=== PATIENT | female | born 1935 | race Caucasian/White ===

== ENCOUNTER 2016-12-04 08:03 | Inpatient (IN) | payer MEDICARE ==
--- NOTE | 2016-11-26 04:05 | HP ---
PREOPERATIVE HISTORY AND PHYSICAL: DATE OF ADMISSION/SURGERY: 12/04/16 DATE OF OFFICE VISIT: 11/23/16 ATTENDING SURGEON: Dr. Ellen Pearl * (DICTATED BY ADAMARIS PIZARRO) PROCEDURE: Right total knee replacement. CHIEF COMPLAINT: Right knee pain. HISTORY OF PRESENT ILLNESS: Ms. Urena is a 81-year-old female who presents to the clinic for right knee pain due to severe osteoarthritis. She has failed conservative measures and has therefore agreed to undergo a right total knee replacement with Dr. Pearl on 12/04/16. PAST MEDICAL HISTORY: Hypertension, osteoarthritis, dyslipidemia, diabetes type 2, chronic kidney disease, peripheral vascular disease, aortic stenosis. PAST SURGICAL HISTORY: Hysterectomy, bunion surgery of the right foot. Denies prior complications with anesthesia. MEDICATIONS: 1. Benazepril HCL/hydrochlorothiazide 20-25 two tabs daily in the morning. 2. Amlodipine besylate 5 mg 1 by mouth every day. 3. Metoprolol succinate 50 mg 1 by mouth every day in the morning. 4. Aspirin low dose 81 mg 1 tab by mouth daily. 5. Os-Ervin 500/200 D 3 tabs by mouth every day. 7. Multivitamin 1 by mouth every day. 8. Ferrous sulfate 325 one by mouth every day. 9. Colace 100 mg 1 a day as needed. 10. Glucosamine chondroitin 500 mg 2 caps p.o. twice a day. 11. Cyclobenzaprine HCL 10 mg take 1 by mouth at bedtime. 12. Probiotic once daily. 13. Vitamin B6. ALLERGIES: PENICILLIN, TYLENOL WITH CODEINE, CLARINEX, SULFA ANTIBIOTIC, CIPRO and ZITHROMAX. FAMILY HISTORY: Positive for diabetes in her mother, heart disease and stroke. SOCIAL HISTORY: She lives alone. She denies tobacco, alcohol or illegal drug use. She is right hand dominant. REVIEW OF SYSTEMS: General: Negative for fevers, chills, night sweats or any anesthesia problems. HEENT: Negative for headache, lightheadedness, or syncopal episodes. Integumentary: Negative for abrasions, lesions, or open wounds. Cardiothoracic: Negative for chest pain, palpitations, or edema. Positive for hypertension. Pulmonary: Positive for shortness of breath with exertion. Denies COPD. GI: Negative for nausea, vomiting, diarrhea, constipation. Denies GERD. : Negative for nocturia, urinary frequency, history of UTIs, or kidney problems. Musculoskeletal: Positive for right knee pain. Neuro: Denies numbness, tingling, history of seizure, stroke, epilepsy. Endocrine: Positive for diabetes, no thyroid issues. Heme: Positive for easy bruising. Denies history of bleeding disorder. Denies history of DVT or PE. Infectious disease: Negative for history of MRSA, hep C or HIV. PHYSICAL EXAMINATION GENERAL: Well-developed, well-nourished, 81-year-old female in no acute distress. Alert and oriented x3, appropriate mood and affect. Appropriate balance and coordination. VITAL SIGNS: Height 63, weight 178, pulse 68, blood pressure 126/68, temperature 97.5. BMI is 31.5. HEENT: Normocephalic, atraumatic. PERRLA. NECK: Supple. Throat clear. PULMONARY: Lungs clear to auscultation bilaterally. No wheezing, rhonchi, or rales. CARDIO: Regular rate and rhythm, S1 and S2. No murmurs, gallops or rubs. No edema. ABDOMEN: Positive bowel sounds, soft, nontender. NEURO: Alert and oriented x3. Cranial nerves grossly intact. Sensation is intact to light touch. MUSCULOSKELETAL: Right lower extremity: Skin is intact. No abrasions or open lesions. 10-degree varus deformity, tenderness to palpation on the medial and lateral joint line. Moderate effusion. Stable to varus and valgus stress. No focal masses or lymph nodes. No hyperreflexia. Range of motion from 10 to 120 degrees, +5/5 lower extremity strength, +2 posterior tibialis pulses. Sensation intact to light distally. DIAGNOSTIC STUDIES: Multi-view x-rays of the right knee reveal evidence of end - stage arthritis with [id number] contact in the medial compartment with osteophyte formation. IMPRESSION: Right knee severe osteoarthritis. PLAN: The patient is scheduled to undergo a right total knee replacement with Dr. Pearl on 12/04/16. She has been cleared by her limnologist and her primary care physician. The patient was instructed to stop aspirin 1 week prior to surgery. She will return to the office in 10 to 14 days postop for followup and suture removal. Percocet was e-prescribed to her pharmacy for postop pain management. Coumadin for sent for DVT prophylaxis and Colace was sent to be used as needed for constipation. ADAMARIS PIZARRO [id number]/[facility] #: [id number] [facility] MEDICAL CENTERMurtaza
[~2016-12-04 08:03] MED LIST: Buffered Lidocaine 0.9% SYRIN* 5 ML/SYR SYRINGE INTRADERM ONE; Famotidine IV* 10 MG/ML 2 ML (20 mg) IV ONE; Gabapentin CAP(*) 300 MG PO ONE
[2016-12-04] MEDS ORDERED: Famotidine IV* 10 MG/ML 2 ML (20 mg) ONE (08:10)
[2016-12-04] MEDS ORDERED: Gabapentin CAP(*) 300 MG ONE (08:11)
[2016-12-04] MEDS ORDERED: Buffered Lidocaine 0.9% SYRIN* 5 ML/SYR SYRINGE ONE (08:11)
[2016-12-04] MEDS ORDERED: Clindamycin 900 MG IVPREMIX(* 900 MG/50 ML SDV IV ONE (08:11)
[2016-12-04] MEDS ORDERED: Midazolam* 1 MG/ML 5 ML VIAL (5 MG) ONE (08:34)
[2016-12-04] MEDS ORDERED: fentaNYL* 50 MCG/ML 2 ML VIAL (100 MCG VIAL) ONE (08:34)
[2016-12-04] MEDS ORDERED: Lidocaine 2% PF * 5 ML VIAL ONE (10:55)
[2016-12-04] MEDS ORDERED: Succinylcholine* 20 MG/ML 10 ML VIAL ONE (10:55)
[2016-12-04] MEDS ORDERED: Dexamethasone IV* 4 MG/ML 1 ML (4 MG) ONE (10:55)
[2016-12-04] MEDS ORDERED: Ketorolac INJ* 30 MG/ML 1 ML VIAL ONE (10:55)
[2016-12-04] MEDS ORDERED: Propofol* 10 MG/ML 20 ML BTL IV PUSH ONE (10:55)
[2016-12-04] MEDS ORDERED: DiMENhydriNATE IV* 50 MG/ML VIAL ONE (10:55)
[2016-12-04] MEDS ORDERED: Ondansetron INJ* 2 MG/ML VIAL ONE (10:55)
[2016-12-04] MEDS ORDERED: ROPIVACAINE 5 MG/ML 30 ML BTL (0.5%) ONE (10:59)
[2016-12-04] MEDS ORDERED: oxyCODONE TAB* 5 MG TAB PO PRN ×2 (11:17→13:14)
[2016-12-04] MEDS ORDERED: Acetaminophen IV 1GM/100ML * 100 ML IVPB ONE (11:17)
[2016-12-04] MEDS ORDERED: DiMENhydriNATE IV* 50 MG/ML VIAL IV PUSH PRN (11:17)
[2016-12-04] MEDS ORDERED: HYDROmorphone* 1 MG/ML 1 ML SYR IV PRN (11:17)
[2016-12-04] MEDS ORDERED: Gabapentin CAP(*) 100 MG PO ONE (11:18)
[2016-12-04] MEDS ORDERED: KETAMINE HCL* 50 MG/ML 10 ML VIAL ONE (11:39)
[2016-12-04] MEDS ORDERED: diPHENhydraMINE IV* 50 MG/ML 1 ml VIAL (BENADRYL) IV PRN (13:14)
[2016-12-04] MEDS ORDERED: diPHENhydraMINE PO* 25 MG PO PRN (13:14)
[2016-12-04] MEDS ORDERED: Ondansetron TAB* 4 MG PO PRN (13:14)
[2016-12-04] MEDS ORDERED: Acetaminophen TAB* 325 MG PO PRN (13:14)
[2016-12-04] MEDS ORDERED: Bisacodyl SUPP* 10 MG SUPP PR PRN (13:19)
[2016-12-04] MEDS ORDERED: Polyethylene Glycol 3350* 17 GM PACKET PO PRN (13:19)
[2016-12-04] MEDS ORDERED: HYDROmorphone* 1 MG/ML 1 ML SYR ONE ×2 (13:27→15:12)
[2016-12-04] MEDS ORDERED: Acetaminophen IV 1GM/100ML * 100 ML ONE (13:59)
[2016-12-04] MEDS ORDERED: Gabapentin CAP(*) 100 MG ONE (13:59)
[2016-12-04] MEDS ORDERED: ceFAZolin VIAL(*) 1 GM in NS 0.9% 50 ML* 50 ML IVPB SCH (14:00)
--- NOTE | 2016-12-04 15:54 | RAD ---
INDICATION: Status post right knee total joint replacement surgery. COMPARISON: Comparison is made x-ray study of the knees from September 11, 2016. TECHNIQUE: 2 views of the right knee were obtained. FINDINGS: The patient is status post total right knee replacement surgery. The bones and prostheses are in normal alignment. There is a single surgical drain present anterior to the distal femur. IMPRESSION: STATUS POST TOTAL RIGHT KNEE REPLACEMENT SURGERY.
[2016-12-04] MEDS ORDERED: Warfarin TAB(*) 6 MG PO ONE (17:00)
[2016-12-04] MEDS: oxyCODONE/Acetamin 5/325 MG* TAB PO PRN ×2 (18:24→22:49)
[2016-12-04] MEDS: Clindamycin 600 MG IVPREMIX(* 600 MG/50 ML SDV IV SCH (19:35)
[2016-12-04] MEDS: Magnesium Hydroxide LIQ* 30 ML UDC PO SCH (20:42)
[2016-12-04] MEDS: Docusate CAP* 100 MG PO SCH (20:45)
[2016-12-04] MEDS: Cyclobenzaprine TAB* 10 MG PO SCH (20:45)
--- NOTE | 2016-12-04 21:48 | CONS ---
CC: Dr. Kilpatrick * CONSULTATION REPORT: DATE OF CONSULT: 12/04/16 REQUESTING PROVIDER: Dr. Ellen Pearl. CONSULTING PROVIDER: ADAMARIS Greenberg SUPERVISING PHYSICIAN: Dr. Nael Martin. PRIMARY CARE PROVIDER: Dr. Kilpatrick. PRIMARY CONSULTING SOLUTION MANAGER: Dr. Malone. REASON FOR CONSULT: Status post right total knee replacement with request for hospital consult for medical co-management. HISTORY OF PRESENT ILLNESS: This is a 81-year-old female with chronic kidney disease, hypertension, hyperlipidemia, peripheral vascular disease, who presented for an elective right total knee arthroplasty with Dr. Pearl earlier today. The patient was evaluated by both her primary care provider as well as her machine tank operator, Dr. Malone, preoperatively. There was a mention of diabetes in her medical history from her orthopedic H and P, but this does not appear to be reflected in her PCP or Cardiology notes. The patient last underwent stress testing approximately 2 years ago, November 2014, which was within normal limits, and her last echo was around the same time, was also essentially normal with an EF of 55% to 60% with trace aortic stenosis and mild mitral regurg. Dr. Malone did not recommend any repeat cardiac imaging preoperatively. The patient was able to provide just a limited history in the recovery area, she was so quite sedated from general anesthesia. She denied chest pain, shortness of breath, abdominal pain, nausea, or vomiting. She was complaining of severe right knee pain. PAST MEDICAL HISTORY: 1. Hypertension. 2. Hyperlipidemia. 3. Peripheral vascular disease. 4. Stage 3 chronic kidney disease. PAST SURGICAL HISTORY: 1. Hysterectomy. 2. Bunionectomy of the right foot. HOME MEDICATIONS: 1. B6 100 mg p.o. at bedtime. 2. Os-Ervin 1 tablet p.o. daily. 3. Acetaminophen 325 mg p.o. q.6 hours as needed for pain or fever. 4. Amlodipine 5 mg p.o. daily. 5. Aspirin 81 mg p.o. daily. 6. Benazepril and hydrochlorothiazide 20/25 two tablets p.o. daily. 7. Flexeril 10 mg p.o. at bedtime. 8. Colace 100 mg p.o. daily. 9. Ferrous sulfate 325 mg p.o. daily. 10. Glucosamine 1 capsule p.o. daily. 11. Metoprolol succinate 50 mg p.o. daily. 12. Multivitamin 1 capsule p.o. daily. SOCIAL HISTORY: The patient lives alone. No significant smoking history, no regular alcohol consumption. REVIEW OF SYSTEMS: Unable to obtain as the patient is still quite sedated postoperatively. PHYSICAL EXAM: Recent vitals: Temperature 99.9 degrees Fahrenheit, pulse 67 beats per minute, respiratory rate 18 per minute, oxygen saturation 94% on 4 L, blood pressure 115/61 mmHg. General: This is a 81-year-old female who is still quite lethargic postoperatively, evaluated in PACU. She is occasionally able to respond to her name and is able to report that she is in pain and the other negative review of systems as listed above. HEENT: Head is normocephalic , atraumatic. Mucous membranes are pink and moist. Cardiovascular: Heart has a regular rate and rhythm without murmurs, rubs, or gallops. Respiratory: Lungs are clear to auscultation without wheezes, crackles, or rhonchi. Abdomen: Abdomen is soft and nontender to palpation. Extremities: Right knee is in a postoperative dressing. Distal pulses are intact. DIAGNOSTIC STUDIES/LAB DATA: Reviewed labs from 11/23/16 and 11/05/16. CBC was within normal limits with a white blood cell count of 7900, hemoglobin of 12.1 g/dL, and platelet count 213,000. TSH of 1.91 with a free T4 of 0.82. Basic metabolic panel showed a sodium of 132, potassium 4.1, BUN 40, creatinine 1.26. Imaging: Preoperative EKG shows a normal sinus rhythm. ASSESSMENT AND PLAN: This is a 81-year-old female with hypertension, hyperlipidemia, stage 3 chronic kidney disease, and peripheral vascular disease , who underwent elective right total knee arthroplasty with Dr. Pearl earlier today. Hospitalist group has been asked to consult for medical co-management. 1. Status post right total knee arthroplasty - postoperative management per Orthopedic Surgery including DVT prophylaxis, pain control, and discharge planning. 2. Stage 3 chronic kidney disease - preop creatinine of 1.26. Recommend avoiding nephrotoxic agents and a repeat basic metabolic panel tomorrow morning. 3. Hypertension - we will hold her benazepril and hydrochlorothiazide for tomorrow morning assuming her chemistries are stable and blood pressure tolerates, can likely be resumed either later in the day tomorrow or the following day. 4. Hyperlipidemia. 5. Peripheral vascular disease. 6. Code status - the patient is a full code. 7. DVT prophylaxis - Lovenox bridged to Coumadin per Orthopedic Surgery. 8. Healthcare proxy is unknown at this time. DISPOSITION: The patient is being admitted inpatient status to orthopedic surgery service. Hospitalist group will continue to follow along during her hospital stay. ADAMARIS GREENBERG [id number]/[facility] #: [id number] PATT
[2016-12-05] MEDS: oxyCODONE/Acetamin 5/325 MG* TAB PO PRN ×5 (04:14→22:24)
[2016-12-05] MEDS: Clindamycin 600 MG IVPREMIX(* 600 MG/50 ML SDV IV SCH ×2 (04:15→12:00)
[2016-12-05 05:59] LABS: Hematocrit 25 % (35-47); Hemoglobin 8.7 g/dl (12.0-16.0)
[2016-12-05 06:16] LABS: BUN/Creatinine Ratio 26.7 (8-20); Calcium 7.9 mg/dL (8.6-10.3); EGFR Non-African American 45.1 (>60); Potassium 4.8 mmol/L (3.5-5.0)
[2016-12-05] MEDS: Ferrous Sulfate TAB* 325 MG PO SCH (08:11)
[2016-12-05] MEDS: Multivitamins/Minerals TAB PO SCH (08:11)
[2016-12-05] MEDS: Magnesium Hydroxide LIQ* 30 ML UDC PO SCH ×2 (08:11→21:16)
[2016-12-05] MEDS: Metoprolol Succinate XL TAB* 50 MG PO SCH (08:11)
[2016-12-05] MEDS: Docusate CAP* 100 MG PO SCH ×2 (08:11→21:16)
[2016-12-05] MEDS: NS 0.9% 1000 ML* 1,000 ML IV SCH ×2 (08:15→19:25)
[2016-12-05] MEDS ORDERED: [UNRECOGNIZED DRUG - OTHER] PO SCH (09:00)
--- NOTE | 2016-12-05 10:28 | PN ---
Progress Note - Progress Note Date of Service: 12/05/16 SOAP: Subjective: []Patient seen OOB in chair, doing well. Pain well managed. Denies SOB, CP or dizziness. Objective: [] Vital Signs Temp 97.3 F 12/05/16 08:05 Pulse 65 12/05/16 08:05 Resp 16 12/05/16 08:12 BP 99/47 12/05/16 08:05 Pulse Ox 99 12/05/16 09:15 Intake & Output 12/04/16 12/05/16 12/05/16 18:59 06:59 18:59 Intake Total 2575 480 Output Total 425 900 Balance -425 1675 480 Weight 177 lb Intake: IV Fluids 980 LR 980 IVPB 55 ABX - CLINDAMYCIN 55 Oral 1540 480 Output: [place] 225 900 Estimated Blood Loss 200 Other: # Bowel Movements 0 Laboratory Results - last 24 hr 12/05/16 12/05/16 12/05/16 05:25 05:25 05:25 Hgb 8.7 L Hct 25 L INR (Anticoag Therapy) 1.05 Sodium 124 L Potassium 4.8 Chloride 92 L Carbon Dioxide 23 Anion Gap 9 BUN 31 H Creatinine 1.16 H Est GFR ( Amer) 58.0 Est GFR (Non-Af Amer) 45.1 BUN/Creatinine Ratio 26.7 H Glucose 164 H Calcium 7.9 L Right knee dressings are dry and intact Hemovac drain pulled without difficulty, tip intact calf NT and soft + DF/PF right ankle sensation intact distally Assessment: []s/p Right total knee arthroplasty POD #1 Plan: []PT/OT WBAT RLE Coumadin with Lovenox bridge- [facility]
[2016-12-05] MEDS: amLODIPine TAB* 5 MG PO SCH (10:42)
--- NOTE | 2016-12-05 11:51 | PN ---
Subjective Date of Service: 12/05/16 Interval History: Patient seen and examined at bedside. Patient is OOB to chair. She reports good pain control, denies CP, SOB, abd pain, n/v. Denies fever/chills Family History: Unchanged from Admission Social History: Unchanged from Admission Past Medical History: Unchanged from Admission Objective Active Medications: Acetaminophen (Tylenol Tab*) 650 mg PO Q4H PRN PRN Reason: mild pain or fever Amlodipine Besylate (Norvasc Tab*) 5 mg PO QAM [facility] Last Admin: 12/05/16 10:42 Dose: Not Given Bisacodyl (Dulcolax Supp*) 10 mg [place] DAILY PRN PRN Reason: constipation Cyclobenzaprine HCl (Flexeril Tab*) 10 mg PO BEDTIME [facility] Last Admin: 12/04/16 20:45 Dose: 10 mg Diphenhydramine HCl (Benadryl Iv*) 12.5 mg IV Q6H PRN PRN Reason: PRURITIS Diphenhydramine HCl (Benadryl Po*) 25 mg PO Q6H PRN PRN Reason: INSOMNIA Docusate Sodium (Colace Cap*) 100 mg PO BID [facility] Last Admin: 12/05/16 08:11 Dose: 100 mg Enoxaparin Sodium (Lovenox(*)) 30 mg SUBCUT Q24H [facility] Ferrous Sulfate (Ferrous Sulfate Tab*) 325 mg PO DAILY [facility] Last Admin: 12/05/16 08:11 Dose: 325 mg Clindamycin HCl/Dextrose (Cleocin 600 Mg Ivpremix(*) Sdv) 600 mg in 50 mls @ 100 mls/hr IV Q8H [facility] Last Admin: 12/05/16 04:15 Dose: 100 mls/hr Sodium Chloride (Ns 0.9% 1000 Ml*) 1,000 mls @ 100 mls/hr IV PER RATE [facility] Last Admin: 12/05/16 08:15 Dose: 100 mls/hr Lactulose (Lactulose*) 30 ml PO Q6H PRN PRN Reason: constipation Magnesium Hydroxide (Milk Of Magnesia Liq*) 30 ml PO BID [facility] Last Admin: 12/05/16 08:11 Dose: 30 ml Metoprolol Succinate (Toprol Xl Tab*) 50 mg PO QAM [facility] Last Admin: 12/05/16 08:11 Dose: 50 mg Morphine Sulfate (Morphine Inj (Syringe)*) 5 mg IV Q2H PRN PRN Reason: PAIN Multivitamins/Minerals (Theragran/Minerals Tab*) 1 tab PO DAILY [facility] Last Admin: 12/05/16 08:11 Dose: 1 tab Ondansetron HCl (Zofran Inj*) 4 mg IV Q6H PRN PRN Reason: nausea Ondansetron HCl (Zofran Tab*) 4 mg PO Q6H PRN PRN Reason: NAUSEA Oxycodone HCl (Roxycodone Tab*) 10 mg PO Q4H PRN PRN Reason: breakthru pain Oxycodone/Acetaminophen (Percocet 5/325 Tab*) 1 tab PO Q3H PRN PRN Reason: PAIN - MODERATE Oxycodone/Acetaminophen (Percocet 5/325 Tab*) 2 tab PO Q3H PRN PRN Reason: PAIN - MODERATE Last Admin: 12/05/16 08:12 Dose: 2 tab Pharmacy Profile Note (Coumadin Daily Reminder*) 1 note FOLLOW UP 1700 [facility] Last Admin: 12/04/16 17:14 Dose: 1 note Polyethylene Glycol/Electrolytes (Miralax*) 17 gm PO DAILY PRN PRN Reason: Constipation Warfarin Sodium (Coumadin Tab(*)) 8 mg PO ONCE@1700 ONE PRN Reason: Protocol Stop: 12/05/16 17:01 Vital Signs 12/04/16 12/04/16 12/04/16 14:30 14:35 14:40 Temperature 99.9 F Pulse Rate 70 68 66 Respiratory 20 16 16 Rate Blood Pressure 132/61 120/58 124/61 (mmHg) O2 Sat by Pulse 96 98 97 Oximetry 12/04/16 12/04/16 12/04/16 14:50 15:15 15:17 Temperature Pulse Rate 65 67 Respiratory 16 18 18 Rate Blood Pressure 119/62 115/61 (mmHg) O2 Sat by Pulse 97 94 Oximetry 12/04/16 12/04/16 12/04/16 15:45 16:16 16:44 Temperature 97.7 F 97.6 F 97.6 F Pulse Rate 69 69 69 Respiratory 15 15 15 Rate Blood Pressure 113/61 107/57 107/57 (mmHg) O2 Sat by Pulse 95 96 96 Oximetry 12/04/16 12/04/16 12/04/16 17:03 18:12 18:15 Temperature 97.4 F 97.6 F Pulse Rate 68 71 Respiratory 16 16 Rate Blood Pressure 105/58 110/55 (mmHg) O2 Sat by Pulse 97 98 100 Oximetry 12/04/16 12/04/16 12/04/16 18:24 19:30 20:24 Temperature Pulse Rate Respiratory 18 18 20 Rate Blood Pressure (mmHg) O2 Sat by Pulse Oximetry 12/04/16 12/04/16 12/04/16 20:27 20:45 21:15 Temperature 96.9 F Pulse Rate 66 Respiratory 16 20 Rate Blood Pressure 103/54 (mmHg) O2 Sat by Pulse 100 99 Oximetry 12/04/16 12/04/16 12/04/16 22:03 22:45 22:49 Temperature 97.8 F Pulse Rate 68 Respiratory 16 18 18 Rate Blood Pressure 110/54 (mmHg) O2 Sat by Pulse 100 Oximetry 12/04/16 12/05/16 12/05/16 23:28 00:49 03:21 Temperature 97.3 F Pulse Rate 68 66 Respiratory 20 18 16 Rate Blood Pressure 106/50 109/57 (mmHg) O2 Sat by Pulse 100 99 Oximetry 12/05/16 12/05/16 12/05/16 04:14 06:14 08:00 Temperature Pulse Rate Respiratory 20 16 16 Rate Blood Pressure (mmHg) O2 Sat by Pulse 99 Oximetry 12/05/16 12/05/16 12/05/16 08:05 08:12 09:15 Temperature 97.3 F Pulse Rate 65 Respiratory 15 16 Rate Blood Pressure 99/47 (mmHg) O2 Sat by Pulse 100 99 Oximetry 12/05/16 10:12 Temperature Pulse Rate Respiratory 18 Rate Blood Pressure (mmHg) O2 Sat by Pulse Oximetry Appearance: Older female, OOB to chair, NAD Eyes: No Scleral Icterus Ears/Nose/Mouth/Throat: Clear Oropharnyx, Mucous Membranes Moist Neck: NL Appearance and Movements; NL JVP Respiratory: Symmetrical Chest Expansion and Respiratory Effort, Clear to Auscultation Cardiovascular: NL Sounds; No Murmurs; No JVD, RRR Abdominal: NL Sounds; No Tenderness; No Distention Extremities: No Edema, No Clubbing, Cyanosis, - - right knee dressing c/d/i, distally nvi Neurological: Alert and Oriented x 3, NL Muscle Strength and Tone Lines/Tubes/Other Access: Clean, Dry and Intact Peripheral IV Nutrition: Taking PO's Result Diagrams: 12/05/16 05:25 12/05/16 13:29 Assess/Plan/Problems-Billing Assessment: Ms. Urena is a 81 yo female with a PMH of HTN, HLD, PVD, and stage 3 CKD who was admitted 12/04 for elective right total knee replacement. - Patient Problems (1) Status post total right knee replacement Code(s): Z96.651 - PRESENCE OF RIGHT ARTIFICIAL KNEE JOINT Comment: POD #1 Management per ortho HH stable PT/OT (2) Hyponatremia Code(s): E87.1 - HYPO-OSMOLALITY AND HYPONATREMIA Comment: NA 125 Likely secondary to hypovolemia and CKD Switch LR to NS Continue to follow BMP (3) HTN (hypertension) Code(s): I10 - ESSENTIAL (PRIMARY) HYPERTENSION Comment: Normotensive Continue to hold benazepril, HCTZ Resume when BP allows (4) CKD (chronic kidney disease), stage III Code(s): N18.3 - CHRONIC KIDNEY DISEASE, STAGE 3 (MODERATE) Comment: Preop creatine 1.26 Creatinine better than previous baseline Avoid nephrotoxic medications Continue outpatient nephrology follow-up (5) PVD (peripheral vascular disease) Code(s): I73.9 - PERIPHERAL VASCULAR DISEASE, UNSPECIFIED (6) HLD (hyperlipidemia) Code(s): E78.5 - HYPERLIPIDEMIA, UNSPECIFIED (7) DVT prophylaxis Comment: Per ortho Enoxaparin and warfarin Status and Disposition: Inpatient admission. Dispo per ortho.
[2016-12-05] MEDS ORDERED: Enoxaparin(*) 30 MG/0.3 ML SYR SUBCUT SCH (14:00)
--- NOTE | 2016-12-05 14:01 | OP ---
DATE OF OPERATION: 12/04/16 - ROOM #347 DATE OF : 39 SURGEON: Ellen Pearl MD BRAND REPRESENTATIVE: ADAMARIS Powell. Ms. Sutton did help throughout the procedure with preparation of the leg, wound retraction, manipulation of the knee, and wound closure. ANESTHESIOLOGIST: Karen Fields MD ANESTHESIA: General with adductor nerve block. PRE-OP DIAGNOSIS: Severe end-stage degenerative osteoarthritis of the right knee joint with 20-degree flexion contracture. POST-OP DIAGNOSIS: Severe end-stage degenerative osteoarthritis of the right knee joint with 20-degree flexion contracture. OPERATIVE PROCEDURE: Right total knee arthroplasty. INDICATIONS: Ms. Urena is a 81-year-old female with years of increasingly severe right knee pain. She failed conservative treatment with anti- inflammatories, pain medication, intra-articular injection, and physical therapy. Radio-graph showed [id number] arthritis with bony deformity and extreme osteophyte formation. She elected to undergo right total knee arthroplasty for continued pain and decreased quality of life. Informed consent was obtained from the patient. She understood the risks of procedure included, but were not limited to, bleeding, infection, damage to nearby structures, continued pain, need for further surgery, intraoperative fracture, nerve palsy, hardware failure or loosening, stroke, heart attack, blood clot, and . She wished to proceed. TOURNIQUET TIME: 60 minutes. COMPLICATIONS: None. ESTIMATED BLOOD LOSS: 200 cc. SPECIMEN: Bone and cartilage from the right knee joint sent to Pathology. HARDWARE USED: This is [employer] cemented total knee arthroplasty hardware. For the cement, 2 packages of Simplex bone cement. For the femur, a size 5 right Narrow Legion femoral component, posterior stabilized. For the tibia, a size 4 tibial baseplate. For the insert, a 9-mm posterior stabilized articular insert, size 3-4; and for the patella, a 32-mm 7.5 thickness 3-peg All -poly patella. INTRAOPERATIVE FINDINGS: Intraoperatively, the patient had significant flexion contracture of 20 degrees. She had approximately 20 to 90 degrees of motion preoperatively. At the end of the surgery, she had full extension to 125 degrees of flexion. The patient was noted to have extensive osteophyte formation in all 3 compartments. She had full loss of cartilage in the medial and patellofemoral compartments. DESCRIPTION OF PROCEDURE: Ms. Urena was identified in the preanesthesia unit. Her right lower extremity was marked as the correct operative side. Informed consent was signed and placed in the chart. The patient was taken to the operating room and placed under general anesthesia with an adductor nerve block. A Culver catheter was placed. Tourniquet was placed on the right thigh. The right lower extremity was prepped and draped in the usual sterile fashion. Preop time-out was made to correctly identify the patient's side and site. Appropriate perioperative antibiotics were given within 1 hour of incision. Tourniquet was inflated and a total tourniquet time for this procedure was 60 minutes. A 12-cm midline incision was made with a 10 blade and carried down sharply to the extensor mechanism. A new 10 blade was used to make a standard medial parapatellar arthrotomy. The patella was subluxed laterally. Electrocautery was used to subperiosteally elevate the soft tissue off the superomedial tibia to the midsagittal plane. The knee was flexed up. Anterior horn of the lateral meniscus was released. There was no ACL. There were extensive loss of cartilage and sclerosis of the remaining subchondral bone noted. A drill was used to enter the distal femur. Intramedullary distal femoral cutting guide was pinned on the distal femur. 11 mm of distal femoral bone was carefully removed with an oscillating saw. Next, the external rotation guide was pinned on the distal femur. The distal femur was sized to a size 5. Size 5 multi-cutting jig was pinned on the distal femur. Oscillating saw was used to make the appropriate 4 chamfer cuts. Any bony fragments were carefully removed. Any osteophytes were carefully removed. The PCL was completely released at this point. Tibia was subluxed anteriorly. Extramedullary tibial cutting guide was pinned on the proximal tibia. Oscillating saw was used to make the proximal tibial cut perpendicular to the mechanical axis of the tibia. The bone was carefully removed. The knee was brought out into full extension. Posterior osteophytes were visualized and carefully removed. A spacer block had good fit. There was good medial and lateral ligamentous balancing. The flexion and extension gaps were well balanced. The knee was flexed up. Lamina graphic manager was placed both medially and laterally. Electrocautery was used to remove any remaining meniscus from the medial and lateral compartments. Posterior osteophytes were carefully removed from the posterior condyles and posterior joint capsule. There were extensive osteophytes here. A size 5 right narrow femoral trial was impacted on to the distal femur and had good fit. The box for the posterior stabilized implant was prepared using a reamer and box cut osteotome. A size 4 tibial tray trial with a 9-mm insert trial was placed and the knee was taken through a range of motion. The knee had full extension to 125 degrees of flexion with satisfactory patellofemoral tracking. The patellar was everted. 7 mm of patellar bone and cartilage was carefully removed using an oscillating saw. The patella was sized to a size 32. The peg holes were drilled through the size 32 guide. Size 32, 7.5 thickness patellar trial was placed and the knee was taken through a range of motion. There was good patellofemoral tracking. All trials were carefully removed. The tibia was subluxed anteriorly and sized to size 4. Proximal tibia was prepared using a size 4 keel punch. All bony cut surfaces were copiously irrigated and dried. Final implants were cemented into place starting with the tibia followed by the femur and lastly the patella. A 9-mm insert trial was chosen. The knee was brought out into full extension while the cement fully cured and tourniquet was turned down at 60 minutes. The knee was copiously irrigated with sterile saline. Once the cement had fully cured, the insert trial was removed. Any excess cement was carefully removed from around the hardware and capsule. Electrocautery was used to obtain meticulous hemostasis. Final insert chosen was a 9-mm posterior stabilized articular insert size 3-4. This was locked into position on the tibial tray without difficulty. Stability of the insert was checked and rechecked and noted to be stable. Final range of motion was full extension to 125 degrees of flexion. The knee was copiously irrigated with sterile saline. The extensor mechanism was closed using interrupted #1 Vicryl's over a medium Hemovac drain. The rest of the incision was closed in a layered fashion using 0 and 2-0 Vicryl's. Skin was closed using running 3-0 nylon suture. Sterile Xeroform, 4x4s, and Webril were used to cover the incision. Ilan wrap and cold pack were placed over this. The patient's anesthesia was reversed without difficulty. She was taken to the PACU in stable condition. Intended weightbearing will be weightbearing as tolerated. Intended DVT prophylaxis will be Coumadin with a Lovenox bridge. [id number]/[facility] #: [id number] [facility]
[2016-12-05 14:05] LABS: BUN/Creatinine Ratio 28.7 (8-20); Calcium 7.7 mg/dL (8.6-10.3); EGFR African American 62.9 (>60); EGFR Non-African American 48.9 (>60); Potassium 5.3 mmol/L (3.5-5.0)
[2016-12-05] MEDS ORDERED: Warfarin TAB(*) 4 MG PO ONE (17:00)
[2016-12-05] MEDS: Ondansetron INJ* 2 MG/ML VIAL IV PRN (17:20)
[2016-12-05] MEDS: Cyclobenzaprine TAB* 10 MG PO SCH (21:16)
[2016-12-05] MEDS: Morphine INJ* 10 MG/ML 1 ML SYRINGE IV PRN (23:33)
[2016-12-06] MEDS: oxyCODONE/Acetamin 5/325 MG* TAB PO PRN ×2 (02:38→07:39)
[2016-12-06] MEDS: NS 0.9% 1000 ML* 1,000 ML IV SCH (05:23)
[2016-12-06 06:23] LABS: Hematocrit 23 % (35-47); Hemoglobin 7.9 g/dl (12.0-16.0)
[2016-12-06 06:36] LABS: BUN/Creatinine Ratio 24.1 (8-20); Calcium 7.6 mg/dL (8.6-10.3); EGFR African American 62.9 (>60); EGFR Non-African American 48.9 (>60); Potassium 4.5 mmol/L (3.5-5.0)
[2016-12-06 08:07] LABS: BUN/Creatinine Ratio 24.1 (8-20); Calcium 7.6 mg/dL (8.6-10.3); EGFR African American 62.9 (>60); EGFR Non-African American 48.9 (>60); Potassium 4.3 mmol/L (3.5-5.0)
[2016-12-06] MEDS: Ondansetron INJ* 2 MG/ML VIAL IV PRN (09:29)
[2016-12-06 09:30] LABS: Albumin 3.2 g/dL (3.2-5.2); Globulin 2.1 g/dL (2-4); HDL Cholesterol 25.5 mg/dL; Total Bilirubin 0.4 mg/dL (0.2-1.0); Total Protein 5.3 g/dL (6.4-8.9)
[2016-12-06] MEDS: Magnesium Hydroxide LIQ* 30 ML UDC PO SCH ×2 (09:35→21:16)
[2016-12-06] MEDS: Docusate CAP* 100 MG PO SCH ×2 (09:36→21:16)
[2016-12-06] MEDS: Multivitamins/Minerals TAB PO SCH (09:36)
[2016-12-06] MEDS: Metoprolol Succinate XL TAB* 50 MG PO SCH (09:36)
[2016-12-06] MEDS: Ferrous Sulfate TAB* 325 MG PO SCH (09:36)
[2016-12-06] MEDS: amLODIPine TAB* 5 MG PO SCH (09:36)
--- NOTE | 2016-12-06 10:12 | PN ---
Progress Note - Progress Note Date of Service: 12/06/16 SOAP: Subjective: []Patient seen OOB in chair. States she did feel mildly lightheaded upon standing with transfer to her chair earlier this morning. Right knee pain is moderate. She denies CP, or SOB. Objective: [] Vital Signs Temp 98.0 F 12/06/16 08:15 Pulse 73 12/06/16 09:34 Resp 18 12/06/16 09:37 BP 125/98 12/06/16 09:34 Pulse Ox 94 12/06/16 09:34 Intake & Output 12/05/16 12/06/16 12/06/16 18:59 06:59 18:59 Intake Total 2051 2718 266 Output Total 500 950 200 Balance 1551 1768 66 Intake: IV Fluids 1091 458 266 ABX - CLINDAMYCIN 105 ns 986 458 266 IVPB 980 ns 980 Oral 960 1280 Output: Urine 300 950 Culver 200 Emesis 200 Other: # Bowel Movements 0 Laboratory Results - last 24 hr 12/05/16 12/06/16 12/06/16 13:29 05:56 05:56 Hgb 7.9 L Hct 23 L INR (Anticoag Therapy) 1.80 H Sodium 129 L Potassium 5.3 H Chloride 95 L Carbon Dioxide 25 Anion Gap 9 BUN 31 H Creatinine 1.08 H Est GFR ( Amer) 62.9 Est GFR (Non-Af Amer) 48.9 BUN/Creatinine Ratio 28.7 H Glucose 165 H Calcium 7.7 L Total Bilirubin AST ALT Alkaline Phosphatase Total Protein Albumin Globulin Albumin/Globulin Ratio Triglycerides Cholesterol LDL Cholesterol HDL Cholesterol Ur Random Creatinine Ur Random Sodium 12/06/16 12/06/16 12/06/16 05:56 07:10 09:00 Hgb Hct INR (Anticoag Therapy) Sodium 118 L* D 117 L* Potassium 4.5 4.3 Chloride 86 L 86 L Carbon Dioxide 27 26 Anion Gap 5 5 BUN 26 H 26 H Creatinine 1.08 H 1.08 H Est GFR ( Amer) 62.9 62.9 Est GFR (Non-Af Amer) 48.9 48.9 BUN/Creatinine Ratio 24.1 H 24.1 H Glucose 139 H 134 H Calcium 7.6 L 7.6 L Total Bilirubin 0.40 AST 22 ALT 11 Alkaline Phosphatase 33 L Total Protein 5.3 L Albumin 3.2 Globulin 2.1 Albumin/Globulin Ratio 1.5 Triglycerides 239 Cholesterol 121 LDL Cholesterol 48 HDL Cholesterol 25.5 Ur Random Creatinine 88.11 Ur Random Sodium 12/06/16 09:00 Hgb Hct INR (Anticoag Therapy) Sodium Potassium Chloride Carbon Dioxide Anion Gap BUN Creatinine Est GFR ( Amer) Est GFR (Non-Af Amer) BUN/Creatinine Ratio Glucose Calcium Total Bilirubin AST ALT Alkaline Phosphatase Total Protein Albumin Globulin Albumin/Globulin Ratio Triglycerides Cholesterol LDL Cholesterol HDL Cholesterol Ur Random Creatinine Ur Random Sodium 66 Right knee dressings changed, incision benign, no new drainage new 4x4s and BUSHRA applied calf non tender and soft +DF/PF right ankle sensation intact H+H low, sodium low- medicine following closely Assessment: []s/p Right total knee arthroplasty POD #2 hyponatremia acute post op anemia secondary to acute blood loss Plan: []PT/OT as tolerated WBAT medicine to transfuse 1 Unit PRBC, lasix Coumadin- 2 mg today [facility] 12/06/16 if medically stable
--- NOTE | 2016-12-06 10:17 | PN ---
Subjective Date of Service: 12/06/16 Interval History: Patient seen and examined at bedside. Ms. Urena is OOB to chair. She reports recent emesis. She endorses nausea that has been present since early this morning. She took pain medication overnight on an empty stomach. She reports some mild dizziness with position change but feels fine sitting in the chair. Denies any headache, changes to vision, weakness, chest pain, shortness of breath. She states, "I'm feeling better now" following emesis. She understands that her sodium level is low and thinks she may have had this before. She denies excessive drinking - she thinks she drank 1 pitcher of water yesterday as well as a juice and a milk. Family History: Unchanged from Admission Social History: Unchanged from Admission Past Medical History: Unchanged from Admission Objective Active Medications: Acetaminophen (Tylenol Tab*) 650 mg PO Q4H PRN PRN Reason: mild pain or fever Amlodipine Besylate (Norvasc Tab*) 5 mg PO QAM [facility] Last Admin: 12/06/16 09:36 Dose: 5 mg Bisacodyl (Dulcolax Supp*) 10 mg [place] DAILY PRN PRN Reason: constipation Cyclobenzaprine HCl (Flexeril Tab*) 10 mg PO BEDTIME [facility] Last Admin: 12/05/16 21:16 Dose: 10 mg Diphenhydramine HCl (Benadryl Iv*) 12.5 mg IV Q6H PRN PRN Reason: PRURITIS Diphenhydramine HCl (Benadryl Po*) 25 mg PO Q6H PRN PRN Reason: INSOMNIA Docusate Sodium (Colace Cap*) 100 mg PO BID [facility] Last Admin: 12/06/16 09:36 Dose: 100 mg Enoxaparin Sodium (Lovenox(*)) 30 mg SUBCUT Q24H [facility] Last Admin: 12/05/16 13:41 Dose: 30 mg Ferrous Sulfate (Ferrous Sulfate Tab*) 325 mg PO DAILY [facility] Last Admin: 12/06/16 09:36 Dose: 325 mg Lactulose (Lactulose*) 30 ml PO Q6H PRN PRN Reason: constipation Magnesium Hydroxide (Milk Of Magnesia Liq*) 30 ml PO BID [facility] Last Admin: 12/06/16 09:35 Dose: 30 ml Metoprolol Succinate (Toprol Xl Tab*) 50 mg PO QAM [facility] Last Admin: 12/06/16 09:36 Dose: 50 mg Morphine Sulfate (Morphine Inj (Syringe)*) 5 mg IV Q2H PRN PRN Reason: PAIN Last Admin: 12/05/16 23:33 Dose: 5 mg Multivitamins/Minerals (Theragran/Minerals Tab*) 1 tab PO DAILY [facility] Last Admin: 12/06/16 09:36 Dose: 1 tab Ondansetron HCl (Zofran Inj*) 4 mg IV Q6H PRN PRN Reason: nausea Last Admin: 12/06/16 09:29 Dose: 4 mg Ondansetron HCl (Zofran Tab*) 4 mg PO Q6H PRN PRN Reason: NAUSEA Oxycodone HCl (Roxycodone Tab*) 10 mg PO Q4H PRN PRN Reason: breakthru pain Oxycodone/Acetaminophen (Percocet 5/325 Tab*) 1 tab PO Q3H PRN PRN Reason: PAIN - MODERATE Oxycodone/Acetaminophen (Percocet 5/325 Tab*) 2 tab PO Q3H PRN PRN Reason: PAIN - MODERATE Last Admin: 12/06/16 07:39 Dose: 2 tab Pharmacy Profile Note (Coumadin Daily Reminder*) 1 note FOLLOW UP 1700 [facility] Last Admin: 12/05/16 17:22 Dose: 1 note Polyethylene Glycol/Electrolytes (Miralax*) 17 gm PO DAILY PRN PRN Reason: Constipation Vital Signs 12/05/16 12/05/16 12/05/16 11:50 12:50 14:50 Temperature 97.5 F Pulse Rate 70 Respiratory 14 18 16 Rate Blood Pressure 105/53 (mmHg) O2 Sat by Pulse 96 Oximetry 12/05/16 12/05/16 12/05/16 15:26 15:55 17:26 Temperature 98.8 F Pulse Rate 69 Respiratory 16 18 Rate Blood Pressure 106/54 (mmHg) O2 Sat by Pulse 95 95 Oximetry 12/05/16 12/05/16 12/05/16 19:26 19:33 19:49 Temperature 98.0 F Pulse Rate 69 Respiratory 18 18 16 Rate Blood Pressure 104/49 (mmHg) O2 Sat by Pulse 93 Oximetry 12/05/16 12/05/16 12/05/16 21:16 22:24 23:16 Temperature Pulse Rate Respiratory 18 18 16 Rate Blood Pressure (mmHg) O2 Sat by Pulse Oximetry 12/05/16 12/05/16 12/06/16 23:33 23:37 00:00 Temperature 98.3 F Pulse Rate 73 Respiratory 18 16 Rate Blood Pressure 116/48 (mmHg) O2 Sat by Pulse 96 94 Oximetry 12/06/16 12/06/16 12/06/16 00:24 00:33 01:36 Temperature Pulse Rate Respiratory 16 18 Rate Blood Pressure (mmHg) O2 Sat by Pulse 96 Oximetry 12/06/16 12/06/16 12/06/16 02:38 03:47 04:38 Temperature 97.8 F Pulse Rate 73 Respiratory 18 16 18 Rate Blood Pressure 117/51 (mmHg) O2 Sat by Pulse 94 Oximetry 12/06/16 12/06/16 12/06/16 07:39 08:00 08:15 Temperature 98.0 F Pulse Rate 75 Respiratory 16 16 15 Rate Blood Pressure 109/51 (mmHg) O2 Sat by Pulse 94 89 Oximetry 12/06/16 12/06/16 12/06/16 08:47 09:34 09:37 Temperature Pulse Rate 73 Respiratory 18 Rate Blood Pressure 125/98 (mmHg) O2 Sat by Pulse 96 94 Oximetry Oxygen Devices in Use Now: None Appearance: Older female, OOB to chair, pale, in NAD Eyes: No Scleral Icterus Ears/Nose/Mouth/Throat: Clear Oropharnyx, Mucous Membranes Moist Neck: NL Appearance and Movements; NL JVP Respiratory: Symmetrical Chest Expansion and Respiratory Effort, Clear to Auscultation Cardiovascular: NL Sounds; No Murmurs; No JVD, RRR Abdominal: NL Sounds; No Tenderness; No Distention Extremities: - - +1 pitting edema to BLE, RLE dressing c/d/i Neurological: Alert and Oriented x 3, NL Muscle Strength and Tone Lines/Tubes/Other Access: Clean, Dry and Intact Peripheral IV Nutrition: Taking PO's Result Diagrams: 12/06/16 15:27 12/06/16 15:13 Assess/Plan/Problems-Billing Assessment: Ms. Urena is a 81 yo female with a PMH of HTN, HLD, PVD, and stage 3 CKD who was admitted 12/04 for elective right total knee replacement. - Patient Problems (1) Hyponatremia Code(s): E87.1 - HYPO-OSMOLALITY AND HYPONATREMIA Comment: Sodium initially improved following fluids then dropped to 117 this AM Patient currently asymptomatic Awaiting urine studies to help determine cause Patient appears to have some mild fluid overload IVF discontinued, start fluid restriction Continue to follow BMP (2) Status post total right knee replacement Code(s): Z96.651 - PRESENCE OF RIGHT ARTIFICIAL KNEE JOINT Comment: POD #2 Management per ortho HH dropped, Hgb 7.9 Discussed with ortho, plan to transfuse 1 unit PRBC, as patient has some orthostasis Follow PRBC with IV furosemide PT/OT (3) HTN (hypertension) Code(s): I10 - ESSENTIAL (PRIMARY) HYPERTENSION Comment: Normotensive Continue to hold benazepril, HCTZ Resume when BP allows (4) CKD (chronic kidney disease), stage III Code(s): N18.3 - CHRONIC KIDNEY DISEASE, STAGE 3 (MODERATE) Comment: Preop creatine 1.26 Creatinine better than previous baseline Avoid nephrotoxic medications Continue outpatient nephrology follow-up (5) PVD (peripheral vascular disease) Code(s): I73.9 - PERIPHERAL VASCULAR DISEASE, UNSPECIFIED (6) HLD (hyperlipidemia) Code(s): E78.5 - HYPERLIPIDEMIA, UNSPECIFIED (7) DVT prophylaxis Comment: Per ortho Enoxaparin and warfarin Status and Disposition: Inpatient admission. Dispo per ortho.
[2016-12-06 11:14] LABS: TSH (Thyroid Stimulating Horm) 3.51 mcIU/mL (0.34-5.60)
[2016-12-06 11:20] LABS: Free T4 1.34 ng/dL (0.61-1.12)
[2016-12-06] MEDS: Scopolamine 1.5 mg* PATCH TRANSDERM SCH (12:09)
[2016-12-06] MEDS: traMADol TAB* 50 MG PO PRN ×2 (13:26→23:53)
[2016-12-06] MEDS ORDERED: Furosemide IV* 10 MG/ML VIAL (40 MG) IV SLOW PU ONE (14:30)
[2016-12-06 15:35] LABS: Hematocrit 28 % (35-47); Hemoglobin 9.9 g/dl (12.0-16.0); Mean Corpuscular HGB Conc 36 g/dl (31-36); Mean Corpuscular Hemoglobin 32 pg (27-31); Mean Corpuscular Volume 91 fL (80-97); Mean Platelet Volume 8 um3 (7.4-10.4); Red Blood Count 3.06 10^6/ul (4.0-5.4); Red Cell Distribution Width 15 % (10.5-15); White Blood Count 11.2 10^3/ul (3.5-10.8)
[2016-12-06 15:53] LABS: BUN/Creatinine Ratio 24.7 (8-20); Calcium 8.1 mg/dL (8.6-10.3); EGFR African American 71.2 (>60); EGFR Non-African American 55.4 (>60); Potassium 4.4 mmol/L (3.5-5.0)
[2016-12-06] MEDS ORDERED: Warfarin TAB(*) 2 MG PO ONE (17:00)
[2016-12-06] MEDS: Cyclobenzaprine TAB* 10 MG PO SCH (21:16)
[2016-12-07 06:25] LABS: Hematocrit 27 % (35-47); Hemoglobin 9.6 g/dl (12.0-16.0)
[2016-12-07 06:35] LABS: BUN/Creatinine Ratio 20.4 (8-20); EGFR African American 70.4 (>60); EGFR Non-African American 54.7 (>60); Potassium 4.2 mmol/L (3.5-5.0)
[2016-12-07] MEDS: traMADol TAB* 50 MG PO PRN ×3 (07:42→22:33)
--- NOTE | 2016-12-07 08:32 | PN ---
Progress Note - Progress Note Date of Service: 12/07/16 SOAP: Subjective: 81 y/o female s/p RIGHT TKA. Patient overall feeling well, eager for D/C to [facility]. [place] with PT, no complaints overnight. VSS, H&H stable after transufsion x 1 Unit. Objective: General- Well appearing, NAD MSK- Incision C/D/I, no drainage noted, sutures intact. Minimal edema R knee, new dressing placed. NVI, + DF/PF b/l, neg homans b/l. Vital Signs Temp 98.6 F 12/07/16 03:21 Pulse 76 12/07/16 03:21 Resp 18 12/07/16 07:42 BP 121/53 12/07/16 03:21 Pulse Ox 96 12/07/16 08:08 Intake & Output 12/06/16 12/07/16 12/07/16 18:59 06:59 18:59 Intake Total 606 800 Output Total 2855 2550 Balance -2249 -1750 Intake: IV Fluids 318 ns 318 Oral 800 Packed Cells 288 Output: Urine 2330 2550 Emesis 525 Other: Date of Last Bowel 12/07/16 Movement # Bowel Movements 1 Estimated Stool Amount Large Laboratory Results - last 24 hr 12/06/16 12/06/16 12/06/16 05:56 05:56 07:10 WBC RBC Hgb Hct MCV MCH MCHC RDW Plt Count MPV Neut % (Auto) Lymph % (Auto) [place] % (Auto) Eos % (Auto) Baso % (Auto) Absolute Neuts (auto) Absolute Lymphs (auto) Absolute Monos (auto) Absolute Eos (auto) Absolute Basos (auto) Absolute Nucleated RBC Nucleated RBC % INR (Anticoag Therapy) Sodium 117 L* Potassium Chloride Carbon Dioxide Anion Gap 5 BUN Creatinine Est GFR ( Amer) Est GFR (Non-Af Amer) BUN/Creatinine Ratio Glucose Calcium Total Bilirubin 0.40 AST 22 ALT 11 Alkaline Phosphatase 33 L Total Protein 5.3 L Albumin 3.2 Globulin 2.1 Albumin/Globulin Ratio 1.5 Triglycerides 239 Cholesterol 121 LDL Cholesterol 48 HDL Cholesterol 25.5 TSH 3.51 Free T4 1.34 H Ur Random Creatinine Ur Random Sodium Blood Type A Negative Antibody Screen Negative Crossmatch See Detail 12/06/16 12/06/16 12/06/16 09:00 09:00 15:13 WBC RBC Hgb Hct MCV MCH MCHC RDW Plt Count MPV Neut % (Auto) Lymph % (Auto) [place] % (Auto) Eos % (Auto) Baso % (Auto) Absolute Neuts (auto) Absolute Lymphs (auto) Absolute Monos (auto) Absolute Eos (auto) Absolute Basos (auto) Absolute Nucleated RBC Nucleated RBC % INR (Anticoag Therapy) Sodium 120 L Potassium 4.4 Chloride 86 L Carbon Dioxide 27 Anion Gap 7 BUN 24 Creatinine 0.97 H Est GFR ( Amer) 71.2 Est GFR (Non-Af Amer) 55.4 BUN/Creatinine Ratio 24.7 H Glucose 155 H Calcium 8.1 L Total Bilirubin AST ALT Alkaline Phosphatase Total Protein Albumin Globulin Albumin/Globulin Ratio Triglycerides Cholesterol LDL Cholesterol HDL Cholesterol TSH Free T4 Ur Random Creatinine 88.11 Ur Random Sodium 66 Blood Type Antibody Screen Crossmatch 12/06/16 12/07/16 12/07/16 15:27 05:49 05:49 WBC 11.2 H RBC 3.06 L Hgb 9.9 L 9.6 L Hct 28 L 27 L MCV 91 MCH 32 H MCHC 36 RDW 15 Plt Count 182 MPV 8 Neut % (Auto) 78.7 Lymph % (Auto) 10.0 L [place] % (Auto) 9.2 H Eos % (Auto) 1.2 Baso % (Auto) 0.9 Absolute Neuts (auto) 8.8 H Absolute Lymphs (auto) 1.1 Absolute Monos (auto) 1.0 H Absolute Eos (auto) 0.1 Absolute Basos (auto) 0.1 Absolute Nucleated RBC 0 Nucleated RBC % 0 INR (Anticoag Therapy) 2.98 H Sodium Potassium Chloride Carbon Dioxide Anion Gap BUN Creatinine Est GFR ( Amer) Est GFR (Non-Af Amer) BUN/Creatinine Ratio Glucose Calcium Total Bilirubin AST ALT Alkaline Phosphatase Total Protein Albumin Globulin Albumin/Globulin Ratio Triglycerides Cholesterol LDL Cholesterol HDL Cholesterol TSH Free T4 Ur Random Creatinine Ur Random Sodium Blood Type Antibody Screen Crossmatch 12/07/16 05:49 WBC RBC Hgb Hct MCV MCH MCHC RDW Plt Count MPV Neut % (Auto) Lymph % (Auto) [place] % (Auto) Eos % (Auto) Baso % (Auto) Absolute Neuts (auto) Absolute Lymphs (auto) Absolute Monos (auto) Absolute Eos (auto) Absolute Basos (auto) Absolute Nucleated RBC Nucleated RBC % INR (Anticoag Therapy) Sodium 122 L Potassium 4.2 Chloride 90 L Carbon Dioxide 29 Anion Gap 3 BUN 20 Creatinine 0.98 H Est GFR ( Amer) 70.4 Est GFR (Non-Af Amer) 54.7 BUN/Creatinine Ratio 20.4 H Glucose 150 H Calcium 8.0 L Total Bilirubin AST ALT Alkaline Phosphatase Total Protein Albumin Globulin Albumin/Globulin Ratio Triglycerides Cholesterol LDL Cholesterol HDL Cholesterol TSH Free T4 Ur Random Creatinine Ur Random Sodium Blood Type Antibody Screen Crossmatch Assessment: [] Plan: - DVT prophylaxis- INR 2.98 today, hold coumadin, lovenox. - Continue PT/ OT - D/C tomorrow to [facility], arrangements made for transportation through [facility]. - FOllow up with Dr. Pearl within 10-14 days - Transfused 1 Unit, appropriate H&H response. Active Medications Generic Name Dose Route Start Last Admin Trade Name Freq PRN Reason Stop Dose Admin Acetaminophen 650 mg 12/04/16 13:14 Tylenol Tab* PO Q4H PRN mild pain or fever Amlodipine Besylate 5 mg 12/05/16 09:00 12/06/16 09:36 Norvasc Tab* PO 5 mg QAM [facility] Administration Bisacodyl 10 mg 12/04/16 13:19 Dulcolax Supp* RI DAILY PRN constipation Cyclobenzaprine HCl 10 mg 12/04/16 21:00 12/06/16 21:16 Flexeril Tab* PO 10 mg BEDTIME [facility] Administration Diphenhydramine HCl 12.5 mg 12/04/16 13:14 Benadryl Iv* IV Q6H PRN PRURITIS Diphenhydramine HCl 25 mg 12/04/16 13:14 Benadryl Po* PO Q6H PRN INSOMNIA Docusate Sodium 100 mg 12/04/16 21:00 12/06/16 21:16 Colace Cap* PO 100 mg BID [facility] Administration Ferrous Sulfate 325 mg 12/05/16 09:00 12/06/16 09:36 Ferrous Sulfate Tab* PO 325 mg DAILY [facility] Administration Lactulose 30 ml 12/04/16 13:19 Lactulose* PO Q6H PRN constipation Magnesium Hydroxide 30 ml 12/04/16 21:00 12/06/16 21:16 Milk Of Magnesia Liq* PO 30 ml BID [facility] Administration Metoprolol Succinate 50 mg 12/05/16 09:00 12/06/16 09:36 Toprol Xl Tab* PO 50 mg QAM [facility] Administration Morphine Sulfate 5 mg 12/04/16 13:14 12/05/16 23:33 Morphine Inj (Syringe)* IV 5 mg Q2H PRN Administration PAIN Multivitamins/Minerals 1 tab 12/05/16 09:00 12/06/16 09:36 Theragran/Minerals Tab* PO 1 tab DAILY [facility] Administration Ondansetron HCl 4 mg 12/04/16 13:14 12/06/16 09:29 Zofran Inj* IV 4 mg Q6H PRN Administration nausea Ondansetron HCl 4 mg 12/04/16 13:14 Zofran Tab* PO Q6H PRN NAUSEA Oxycodone HCl 10 mg 12/04/16 13:14 Roxycodone Tab* PO Q4H PRN breakthru pain Oxycodone/Acetaminophen 1 tab 12/04/16 13:14 Percocet 5/325 Tab* PO Q3H PRN PAIN - MODERATE Oxycodone/Acetaminophen 2 tab 12/04/16 13:25 12/06/16 07:39 Percocet 5/325 Tab* PO 2 tab Q3H PRN Administration PAIN - MODERATE Pharmacy Profile Note 1 note 12/04/16 17:00 12/06/16 17:05 Coumadin Daily Reminder* FOLLOW UP 1 note 1700 [facility] Administration Polyethylene Glycol/Electrolytes 17 gm 12/04/16 13:19 Miralax* PO DAILY PRN Constipation Scopolamine 1 patch 12/06/16 12:00 12/06/16 12:09 Transderm-Scop 1.5 Mg Patch* TRANSDERM 1 patch Q72H [facility] Administration Tramadol HCl 50 mg 12/06/16 10:33 12/07/16 07:42 Ultram* PO 50 mg Q6H PRN Administration moderate pain
[2016-12-07] MEDS: Multivitamins/Minerals TAB PO SCH (08:55)
[2016-12-07] MEDS: Ferrous Sulfate TAB* 325 MG PO SCH (08:55)
[2016-12-07] MEDS: amLODIPine TAB* 5 MG PO SCH (08:55)
[2016-12-07] MEDS: Metoprolol Succinate XL TAB* 50 MG PO SCH (08:55)
[2016-12-07] MEDS: Docusate CAP* 100 MG PO SCH ×2 (08:55→20:07)
[2016-12-07] MEDS: Magnesium Hydroxide LIQ* 30 ML UDC PO SCH ×2 (08:56→20:00)
[2016-12-07] MEDS ORDERED: Furosemide IV* 10 MG/ML 2 ML VIAL (20 MG) IV SLOW PU ONE (12:03)
--- NOTE | 2016-12-07 12:03 | PN ---
Subjective Date of Service: 12/07/16 Interval History: Patient seen and examined at bedside. She is OOB to chair, denies fever/chills, CP, SOB. Feels better after receiving PRBC transfusion and furosemide. No other acute complaint. Pain control is adequate. Family History: Unchanged from Admission Social History: Unchanged from Admission Past Medical History: Unchanged from Admission Objective Active Medications: Acetaminophen (Tylenol Tab*) 650 mg PO Q4H PRN PRN Reason: mild pain or fever Amlodipine Besylate (Norvasc Tab*) 5 mg PO QAM [facility] Last Admin: 12/07/16 08:55 Dose: 5 mg Bisacodyl (Dulcolax Supp*) 10 mg SD DAILY PRN PRN Reason: constipation Cyclobenzaprine HCl (Flexeril Tab*) 10 mg PO BEDTIME [facility] Last Admin: 12/06/16 21:16 Dose: 10 mg Diphenhydramine HCl (Benadryl Iv*) 12.5 mg IV Q6H PRN PRN Reason: PRURITIS Diphenhydramine HCl (Benadryl Po*) 25 mg PO Q6H PRN PRN Reason: INSOMNIA Docusate Sodium (Colace Cap*) 100 mg PO BID [facility] Last Admin: 12/07/16 08:55 Dose: 100 mg Ferrous Sulfate (Ferrous Sulfate Tab*) 325 mg PO DAILY [facility] Last Admin: 12/07/16 08:55 Dose: 325 mg Lactulose (Lactulose*) 30 ml PO Q6H PRN PRN Reason: constipation Magnesium Hydroxide (Milk Of Magnesia Liq*) 30 ml PO BID [facility] Last Admin: 12/07/16 08:56 Dose: Not Given Metoprolol Succinate (Toprol Xl Tab*) 50 mg PO QAM [facility] Last Admin: 12/07/16 08:55 Dose: 50 mg Morphine Sulfate (Morphine Inj (Syringe)*) 5 mg IV Q2H PRN PRN Reason: PAIN Last Admin: 12/05/16 23:33 Dose: 5 mg Multivitamins/Minerals (Theragran/Minerals Tab*) 1 tab PO DAILY [facility] Last Admin: 12/07/16 08:55 Dose: 1 tab Ondansetron HCl (Zofran Inj*) 4 mg IV Q6H PRN PRN Reason: nausea Last Admin: 12/06/16 09:29 Dose: 4 mg Ondansetron HCl (Zofran Tab*) 4 mg PO Q6H PRN PRN Reason: NAUSEA Oxycodone HCl (Roxycodone Tab*) 10 mg PO Q4H PRN PRN Reason: breakthru pain Oxycodone/Acetaminophen (Percocet 5/325 Tab*) 1 tab PO Q3H PRN PRN Reason: PAIN - MODERATE Oxycodone/Acetaminophen (Percocet 5/325 Tab*) 2 tab PO Q3H PRN PRN Reason: PAIN - MODERATE Last Admin: 12/06/16 07:39 Dose: 2 tab Pharmacy Profile Note (Coumadin Daily Reminder*) 1 note FOLLOW UP 1700 IMM[facility] Last Admin: 12/06/16 17:05 Dose: 1 note Polyethylene Glycol/Electrolytes (Miralax*) 17 gm PO DAILY PRN PRN Reason: Constipation Scopolamine (Transderm-Scop 1.5 Mg Patch*) 1 patch TRANSDERM Q72H [facility] Last Admin: 12/06/16 12:09 Dose: 1 patch Tramadol HCl (Ultram*) 50 mg PO Q6H PRN PRN Reason: moderate pain Last Admin: 12/07/16 07:42 Dose: 50 mg Vital Signs 12/06/16 12/06/16 12/06/16 13:26 14:14 15:26 Temperature 97.8 F Pulse Rate 72 Respiratory 18 16 18 Rate Blood Pressure 111/49 (mmHg) O2 Sat by Pulse 91 Oximetry 12/06/16 12/06/16 12/06/16 20:00 20:42 21:16 Temperature 98.0 F Pulse Rate 70 Respiratory 18 18 16 Rate Blood Pressure 123/55 (mmHg) O2 Sat by Pulse 97 Oximetry 12/06/16 12/07/16 12/07/16 23:53 00:00 00:12 Temperature 98.0 F Pulse Rate 69 Respiratory 18 16 Rate Blood Pressure 125/54 (mmHg) O2 Sat by Pulse 95 95 Oximetry 12/07/16 12/07/16 12/07/16 01:53 03:21 07:42 Temperature 98.6 F Pulse Rate 76 Respiratory 16 18 18 Rate Blood Pressure 121/53 (mmHg) O2 Sat by Pulse 94 Oximetry 12/07/16 12/07/16 12/07/16 08:00 08:08 09:42 Temperature Pulse Rate Respiratory 18 16 Rate Blood Pressure (mmHg) O2 Sat by Pulse 96 96 Oximetry Oxygen Devices in Use Now: None Appearance: Elderly female, OOB to chair, in NAD Eyes: No Scleral Icterus Ears/Nose/Mouth/Throat: Clear Oropharnyx, Mucous Membranes Moist Neck: NL Appearance and Movements; NL JVP Respiratory: Symmetrical Chest Expansion and Respiratory Effort, Clear to Auscultation Cardiovascular: NL Sounds; No Murmurs; No JVD, RRR Abdominal: NL Sounds; No Tenderness; No Distention Extremities: - - mild pitting edema to BLE Neurological: Alert and Oriented x 3, NL Muscle Strength and Tone Result Diagrams: 12/07/16 05:49 12/07/16 05:49 Assess/Plan/Problems-Billing Assessment: Ms. Urena is a 81 yo female with a PMH of HTN, HLD, PVD, and stage 3 CKD who was admitted 12/04 for elective right total knee replacement. - Patient Problems (1) Hyponatremia Code(s): E87.1 - HYPO-OSMOLALITY AND HYPONATREMIA Comment: Improving, now at 122 Patient asymptomatic Suspect fluid shifts post-operatively and hypervolemia Continue fluid restriction Continue to follow BMP (2) Status post total right knee replacement Code(s): Z96.651 - PRESENCE OF RIGHT ARTIFICIAL KNEE JOINT Comment: POD #3 Management per ortho HH improved following 1 unit PRBC PT/OT (3) HTN (hypertension) Code(s): I10 - ESSENTIAL (PRIMARY) HYPERTENSION Comment: Normotensive Continue to hold benazepril, HCTZ Resume when BP allows (4) CKD (chronic kidney disease), stage III Code(s): N18.3 - CHRONIC KIDNEY DISEASE, STAGE 3 (MODERATE) Comment: Preop creatine 1.26 Creatinine better than previous baseline Avoid nephrotoxic medications Continue outpatient nephrology follow-up (5) PVD (peripheral vascular disease) Code(s): I73.9 - PERIPHERAL VASCULAR DISEASE, UNSPECIFIED (6) HLD (hyperlipidemia) Code(s): E78.5 - HYPERLIPIDEMIA, UNSPECIFIED (7) DVT prophylaxis Comment: Per ortho Enoxaparin and warfarin Status and Disposition: Inpatient admission. Dispo per ortho. Recommend one additional day in order to continue monitor/trending hyponatremia.
[2016-12-07 17:12] LABS: BUN/Creatinine Ratio 18.4 (8-20); Calcium 8.3 mg/dL (8.6-10.3); EGFR African American 66.5 (>60); EGFR Non-African American 51.7 (>60); Potassium 4.3 mmol/L (3.5-5.0)
[2016-12-07] MEDS: Cyclobenzaprine TAB* 10 MG PO SCH (20:10)
[2016-12-08 06:51] LABS: Hematocrit 23 % (35-47); Hemoglobin 8.2 g/dl (12.0-16.0)
[2016-12-08 07:07] LABS: Calcium 7.9 mg/dL (8.6-10.3); EGFR African American 68.8 (>60); EGFR Non-African American 53.5 (>60); Potassium 4.3 mmol/L (3.5-5.0)
[2016-12-08] MEDS: Magnesium Hydroxide LIQ* 30 ML UDC PO SCH ×2 (08:05→20:38)
--- NOTE | 2016-12-08 08:24 | PN ---
Subjective Date of Service: 12/08/16 Interval History: Patient seen and examined at bedside She has no acute complaint, denying dizziness, fever/chills, CP, SOB, abd pain, n/v. Patient has not noted any blood in stools, s/s bleeding. Knee pain well controlled. Family History: Unchanged from Admission Social History: Unchanged from Admission Past Medical History: Unchanged from Admission Objective Active Medications: Acetaminophen (Tylenol Tab*) 650 mg PO Q4H PRN PRN Reason: mild pain or fever Amlodipine Besylate (Norvasc Tab*) 5 mg PO QAM [facility] Last Admin: 12/07/16 08:55 Dose: 5 mg Bisacodyl (Dulcolax Supp*) 10 mg ND DAILY PRN PRN Reason: constipation Cyclobenzaprine HCl (Flexeril Tab*) 10 mg PO BEDTIME [facility] Last Admin: 12/07/16 20:10 Dose: 10 mg Diphenhydramine HCl (Benadryl Iv*) 12.5 mg IV Q6H PRN PRN Reason: PRURITIS Diphenhydramine HCl (Benadryl Po*) 25 mg PO Q6H PRN PRN Reason: INSOMNIA Docusate Sodium (Colace Cap*) 100 mg PO BID [facility] Last Admin: 12/07/16 20:07 Dose: Not Given Ferrous Sulfate (Ferrous Sulfate Tab*) 325 mg PO DAILY [facility] Last Admin: 12/07/16 08:55 Dose: 325 mg Lactulose (Lactulose*) 30 ml PO Q6H PRN PRN Reason: constipation Magnesium Hydroxide (Milk Of Magnesia Liq*) 30 ml PO BID [facility] Last Admin: 12/08/16 08:05 Dose: Not Given Metoprolol Succinate (Toprol Xl Tab*) 50 mg PO QAM [facility] Last Admin: 12/07/16 08:55 Dose: 50 mg Morphine Sulfate (Morphine Inj (Syringe)*) 5 mg IV Q2H PRN PRN Reason: PAIN Last Admin: 12/05/16 23:33 Dose: 5 mg Multivitamins/Minerals (Theragran/Minerals Tab*) 1 tab PO DAILY [facility] Last Admin: 12/07/16 08:55 Dose: 1 tab Ondansetron HCl (Zofran Inj*) 4 mg IV Q6H PRN PRN Reason: nausea Last Admin: 12/06/16 09:29 Dose: 4 mg Ondansetron HCl (Zofran Tab*) 4 mg PO Q6H PRN PRN Reason: NAUSEA Oxycodone HCl (Roxycodone Tab*) 10 mg PO Q4H PRN PRN Reason: breakthru pain Oxycodone/Acetaminophen (Percocet 5/325 Tab*) 1 tab PO Q3H PRN PRN Reason: PAIN - MODERATE Oxycodone/Acetaminophen (Percocet 5/325 Tab*) 2 tab PO Q3H PRN PRN Reason: PAIN - MODERATE Last Admin: 12/06/16 07:39 Dose: 2 tab Pharmacy Profile Note (Coumadin Daily Reminder*) 1 note FOLLOW UP 1700 [facility] Last Admin: 12/07/16 16:36 Dose: Not Given Polyethylene Glycol/Electrolytes (Miralax*) 17 gm PO DAILY PRN PRN Reason: Constipation Scopolamine (Transderm-Scop 1.5 Mg Patch*) 1 patch TRANSDERM Q72H [facility] Last Admin: 12/06/16 12:09 Dose: 1 patch Tramadol HCl (Ultram*) 50 mg PO Q6H PRN PRN Reason: moderate pain Last Admin: 12/07/16 22:33 Dose: 50 mg Vital Signs 12/07/16 12/07/16 12/07/16 09:42 12:07 13:41 Temperature 99.1 F Pulse Rate 67 Respiratory 16 15 18 Rate Blood Pressure 104/40 (mmHg) O2 Sat by Pulse 94 Oximetry 12/07/16 12/07/16 12/07/16 15:41 16:00 20:00 Temperature 98.9 F Pulse Rate 70 Respiratory 16 16 Rate Blood Pressure 113/45 (mmHg) O2 Sat by Pulse 93 94 Oximetry 12/07/16 12/07/16 12/07/16 20:10 22:33 23:27 Temperature 98.5 F 98.2 F Pulse Rate 70 70 Respiratory 16 16 16 Rate Blood Pressure 115/46 110/46 (mmHg) O2 Sat by Pulse 93 92 Oximetry 12/08/16 12/08/16 03:43 07:11 Temperature 98.2 F 98.2 F Pulse Rate 70 69 Respiratory 16 16 Rate Blood Pressure 106/40 95/31 (mmHg) O2 Sat by Pulse 91 93 Oximetry Oxygen Devices in Use Now: None Appearance: Older female, lying in bed, NAD Eyes: No Scleral Icterus Ears/Nose/Mouth/Throat: Clear Oropharnyx, Mucous Membranes Moist Neck: NL Appearance and Movements; NL JVP Respiratory: Symmetrical Chest Expansion and Respiratory Effort, Clear to Auscultation - mild basilar crackles Cardiovascular: NL Sounds; No Murmurs; No JVD, RRR Abdominal: NL Sounds; No Tenderness; No Distention Extremities: No Clubbing, Cyanosis, - - distally nvi, dressing c/d/i Neurological: Alert and Oriented x 3, NL Muscle Strength and Tone Lines/Tubes/Other Access: Clean, Dry and Intact Peripheral IV Result Diagrams: 12/08/16 06:20 12/08/16 06:20 Assess/Plan/Problems-Billing Assessment: Ms. Urena is a 81 yo female with a PMH of HTN, HLD, PVD, and stage 3 CKD who was admitted 12/04 for elective right total knee replacement. - Patient Problems (1) Hyponatremia Code(s): E87.1 - HYPO-OSMOLALITY AND HYPONATREMIA Comment: Improving Patient asymptomatic Suspect fluid shifts post-operatively and hypervolemia Continue fluid restriction Continue to follow BMP (2) Acute blood loss anemia Code(s): D62 - ACUTE POSTHEMORRHAGIC ANEMIA Comment: Patient s/p 1 unit PRBC following surgery Hgb 8.2 this morning, ?GI source in presence of INR of 3 Check stool occult, recheck HH later this AM Recommend stable HH prior to d/c to [facility] (3) Status post total right knee replacement Code(s): Z96.651 - PRESENCE OF RIGHT ARTIFICIAL KNEE JOINT Comment: POD #4 Management per ortho PT/OT (4) HTN (hypertension) Code(s): I10 - ESSENTIAL (PRIMARY) HYPERTENSION Comment: Normotensive Continue to hold benazepril, HCTZ Resume when BP allows (5) CKD (chronic kidney disease), stage III Code(s): N18.3 - CHRONIC KIDNEY DISEASE, STAGE 3 (MODERATE) Comment: Preop creatine 1.26 Creatinine better than previous baseline Avoid nephrotoxic medications Continue outpatient nephrology follow-up (6) PVD (peripheral vascular disease) Code(s): I73.9 - PERIPHERAL VASCULAR DISEASE, UNSPECIFIED (7) HLD (hyperlipidemia) Code(s): E78.5 - HYPERLIPIDEMIA, UNSPECIFIED (8) DVT prophylaxis Comment: Per ortho SCDs Hold anticoagulants with concern for acute bleed Status and Disposition: Inpatient admission. Dispo per ortho. Recommend one additional day in order to continue monitor/trending hyponatremia.
[2016-12-08] MEDS: Metoprolol Succinate XL TAB* 50 MG PO SCH (08:26)
[2016-12-08] MEDS: traMADol TAB* 50 MG PO PRN ×3 (08:26→21:29)
[2016-12-08] MEDS: Docusate CAP* 100 MG PO SCH ×2 (08:26→20:38)
[2016-12-08] MEDS: Ferrous Sulfate TAB* 325 MG PO SCH (08:26)
[2016-12-08] MEDS: amLODIPine TAB* 5 MG PO SCH (08:26)
[2016-12-08] MEDS: Multivitamins/Minerals TAB PO SCH (08:26)
--- NOTE | 2016-12-08 08:26 | PN ---
Progress Note - Progress Note Date of Service: 12/08/16 SOAP: Subjective: patient resting comfortably with no complaints Objective: Vital Signs Temp Pulse Resp BP Pulse Ox 98.2 F 69 16 95/31 93 12/08/16 07:11 12/08/16 07:11 12/08/16 07:11 12/08/16 07:11 12/08/16 07:11 Laboratory Last Values WBC 11.2 10^3/ul (3.5-10.8) H 12/06/16 15:27 RBC 3.06 10^6/ul (4.0-5.4) L 12/06/16 15:27 Hgb 8.2 g/dl (12.0-16.0) L 12/08/16 06:20 Hct 23 % (35-47) L 12/08/16 06:20 MCV 91 fL (80-97) 12/06/16 15:27 MCH 32 pg (27-31) H 12/06/16 15:27 MCHC 36 g/dl (31-36) 12/06/16 15:27 RDW 15 % (10.5-15) 12/06/16 15:27 Plt Count 182 10^3/ul (150-450) 12/06/16 15:27 MPV 8 um3 (7.4-10.4) 12/06/16 15:27 Neut % (Auto) 78.7 % (38-83) 12/06/16 15:27 Lymph % (Auto) 10.0 % (25-47) L 12/06/16 15:27 [place] % (Auto) 9.2 % (1-9) H 12/06/16 15:27 Eos % (Auto) 1.2 % (0-6) 12/06/16 15:27 Baso % (Auto) 0.9 % (0-2) 12/06/16 15:27 Absolute Neuts (auto) 8.8 10^3/ul (1.5-7.7) H 12/06/16 15:27 Absolute Lymphs (auto) 1.1 10^3/ul (1.0-4.8) 12/06/16 15:27 Absolute Monos (auto) 1.0 10^3/ul (0-0.8) H 12/06/16 15:27 Absolute Eos (auto) 0.1 10^3/ul (0-0.6) 12/06/16 15:27 Absolute Basos (auto) 0.1 10^3/ul (0-0.2) 12/06/16 15:27 Absolute Nucleated RBC 0 10^3/ul 12/06/16 15:27 Nucleated RBC % 0 12/06/16 15:27 INR (Anticoag Therapy) 3.04 (0.89-1.11) H 12/08/16 06:20 Sodium 124 mmol/L (133-145) L 12/08/16 06:20 Potassium 4.3 mmol/L (3.5-5.0) 12/08/16 06:20 Chloride 93 mmol/L (101-111) L 12/08/16 06:20 Carbon Dioxide 28 mmol/L (22-32) 12/08/16 06:20 Anion Gap 3 mmol/L (2-11) 12/08/16 06:20 BUN 21 mg/dL (6-24) 12/08/16 06:20 Creatinine 1.00 mg/dL (0.51-0.95) H 12/08/16 06:20 Est GFR ( Amer) 68.8 (>60) 12/08/16 06:20 Est GFR (Non-Af Amer) 53.5 (>60) 12/08/16 06:20 BUN/Creatinine Ratio 21.0 (8-20) H 12/08/16 06:20 Glucose 154 mg/dL (70-100) H 12/08/16 06:20 POC Glucose (mg/dL) 115 mg/dL (74-106) H 12/04/16 08:15 Osmolality 260 mOsm/kg (275 - 295) L 12/06/16 07:26 Calcium 7.9 mg/dL (8.6-10.3) L 12/08/16 06:20 Total Bilirubin 0.40 mg/dL (0.2-1.0) 12/06/16 05:56 AST 22 U/L (13-39) 12/06/16 05:56 ALT 11 U/L (7-52) 12/06/16 05:56 Alkaline Phosphatase 33 U/L (34-104) L 12/06/16 05:56 Total Protein 5.3 g/dL (6.4-8.9) L 12/06/16 05:56 Albumin 3.2 g/dL (3.2-5.2) 12/06/16 05:56 Globulin 2.1 g/dL (2-4) 12/06/16 05:56 Albumin/Globulin Ratio 1.5 (1-3) 12/06/16 05:56 Triglycerides 239 mg/dL 12/06/16 05:56 Cholesterol 121 mg/dL 12/06/16 05:56 LDL Cholesterol 48 mg/dL 12/06/16 05:56 HDL Cholesterol 25.5 mg/dL 12/06/16 05:56 TSH 3.51 mcIU/mL (0.34-5.60) 12/06/16 05:56 Free T4 1.34 ng/dL (0.61-1.12) H 12/06/16 05:56 Urine Osmolality 566 mOsm/kg (150 - 1150) 12/06/16 09:00 Ur Random Creatinine 88.11 mg/dL 12/06/16 09:00 Ur Random Sodium 66 mmol/L 12/06/16 09:00 Blood Type A Negative 12/06/16 05:56 Antibody Screen Negative 12/06/16 05:56 Crossmatch See Detail 12/06/16 05:56 incision: c/d; dressing changed PE: NVI Assessment: s/p right TKA Plan: 1) PT/OT- WBAT 2) continue Lovenox/ Coumadin for DVT prophylaxis 3) hospitalist co-managing; post-op UTI treating with Macrobid 4) possible D/C home today or tomorrow
[2016-12-08 12:16] LABS: Hematocrit 26 % (35-47); Hemoglobin 9.1 g/dl (12.0-16.0)
[2016-12-08] MEDS: oxyCODONE/Acetamin 5/325 MG* TAB PO PRN ×2 (13:04→22:17)
[2016-12-08] MEDS: Cyclobenzaprine TAB* 10 MG PO SCH (20:37)
[2016-12-08] MEDS: Morphine INJ* 10 MG/ML 1 ML SYRINGE IV PRN (23:28)
[2016-12-09] MEDS: traMADol TAB* 50 MG PO PRN ×3 (06:07→18:59)
[2016-12-09] MEDS: oxyCODONE/Acetamin 5/325 MG* TAB PO PRN ×4 (07:11→20:06)
--- NOTE | 2016-12-09 07:19 | PN ---
Progress Note - Progress Note Date of Service: 12/09/16 SOAP: Subjective: patient resting comfortably with no complaints Objective: Vital Signs Temp Pulse Resp BP Pulse Ox 98.6 F 68 16 121/45 97 12/09/16 03:24 12/09/16 03:24 12/09/16 07:11 12/09/16 03:24 12/09/16 03:24 Laboratory Last Values WBC 11.2 10^3/ul (3.5-10.8) H 12/06/16 15:27 RBC 3.06 10^6/ul (4.0-5.4) L 12/06/16 15:27 Hgb 9.1 g/dl (12.0-16.0) L 12/08/16 11:57 Hct 26 % (35-47) L 12/08/16 11:57 MCV 91 fL (80-97) 12/06/16 15:27 MCH 32 pg (27-31) H 12/06/16 15:27 MCHC 36 g/dl (31-36) 12/06/16 15:27 RDW 15 % (10.5-15) 12/06/16 15:27 Plt Count 182 10^3/ul (150-450) 12/06/16 15:27 MPV 8 um3 (7.4-10.4) 12/06/16 15:27 Neut % (Auto) 78.7 % (38-83) 12/06/16 15:27 Lymph % (Auto) 10.0 % (25-47) L 12/06/16 15:27 [place] % (Auto) 9.2 % (1-9) H 12/06/16 15:27 Eos % (Auto) 1.2 % (0-6) 12/06/16 15:27 Baso % (Auto) 0.9 % (0-2) 12/06/16 15:27 Absolute Neuts (auto) 8.8 10^3/ul (1.5-7.7) H 12/06/16 15:27 Absolute Lymphs (auto) 1.1 10^3/ul (1.0-4.8) 12/06/16 15:27 Absolute Monos (auto) 1.0 10^3/ul (0-0.8) H 12/06/16 15:27 Absolute Eos (auto) 0.1 10^3/ul (0-0.6) 12/06/16 15:27 Absolute Basos (auto) 0.1 10^3/ul (0-0.2) 12/06/16 15:27 Absolute Nucleated RBC 0 10^3/ul 12/06/16 15:27 Nucleated RBC % 0 12/06/16 15:27 INR (Anticoag Therapy) 3.04 (0.89-1.11) H 12/08/16 06:20 Sodium 124 mmol/L (133-145) L 12/08/16 06:20 Potassium 4.3 mmol/L (3.5-5.0) 12/08/16 06:20 Chloride 93 mmol/L (101-111) L 12/08/16 06:20 Carbon Dioxide 28 mmol/L (22-32) 12/08/16 06:20 Anion Gap 3 mmol/L (2-11) 12/08/16 06:20 BUN 21 mg/dL (6-24) 12/08/16 06:20 Creatinine 1.00 mg/dL (0.51-0.95) H 12/08/16 06:20 Est GFR ( Amer) 68.8 (>60) 12/08/16 06:20 Est GFR (Non-Af Amer) 53.5 (>60) 12/08/16 06:20 BUN/Creatinine Ratio 21.0 (8-20) H 12/08/16 06:20 Glucose 154 mg/dL (70-100) H 12/08/16 06:20 POC Glucose (mg/dL) 115 mg/dL (74-106) H 12/04/16 08:15 Osmolality 260 mOsm/kg (275 - 295) L 12/06/16 07:26 Calcium 7.9 mg/dL (8.6-10.3) L 12/08/16 06:20 Total Bilirubin 0.40 mg/dL (0.2-1.0) 12/06/16 05:56 AST 22 U/L (13-39) 12/06/16 05:56 ALT 11 U/L (7-52) 12/06/16 05:56 Alkaline Phosphatase 33 U/L (34-104) L 12/06/16 05:56 Total Protein 5.3 g/dL (6.4-8.9) L 12/06/16 05:56 Albumin 3.2 g/dL (3.2-5.2) 12/06/16 05:56 Globulin 2.1 g/dL (2-4) 12/06/16 05:56 Albumin/Globulin Ratio 1.5 (1-3) 12/06/16 05:56 Triglycerides 239 mg/dL 12/06/16 05:56 Cholesterol 121 mg/dL 12/06/16 05:56 LDL Cholesterol 48 mg/dL 12/06/16 05:56 HDL Cholesterol 25.5 mg/dL 12/06/16 05:56 TSH 3.51 mcIU/mL (0.34-5.60) 12/06/16 05:56 Free T4 1.34 ng/dL (0.61-1.12) H 12/06/16 05:56 Urine Osmolality 566 mOsm/kg (150 - 1150) 12/06/16 09:00 Ur Random Creatinine 88.11 mg/dL 12/06/16 09:00 Ur Random Sodium 66 mmol/L 12/06/16 09:00 Blood Type A Negative 12/06/16 05:56 Antibody Screen Negative 12/06/16 05:56 Crossmatch See Detail 12/06/16 05:56 incision: c/d PE: NVI Assessment: s/p right TKA Plan: 1) continue PT/OT-WBAT 2) Continue coumadin/Lovenox/SCD's for DVT prophylaxis 3) Hospitalist co-managing 4) H& H improved 5) Transfer to [facility] when medically stable and cleared by hospitalist 6) F/U with Dr. Pearl 10-14 days
[2016-12-09 08:28] LABS: Hematocrit 24 % (35-47); Hemoglobin 8.4 g/dl (12.0-16.0)
[2016-12-09] MEDS: Ferrous Sulfate TAB* 325 MG PO SCH (08:30)
[2016-12-09] MEDS: Multivitamins/Minerals TAB PO SCH (08:31)
[2016-12-09] MEDS: amLODIPine TAB* 5 MG PO SCH (08:31)
[2016-12-09] MEDS: Docusate CAP* 100 MG PO SCH ×2 (08:31→20:06)
[2016-12-09] MEDS: Metoprolol Succinate XL TAB* 50 MG PO SCH (08:31)
[2016-12-09] MEDS: Magnesium Hydroxide LIQ* 30 ML UDC PO SCH ×2 (08:32→20:07)
[2016-12-09 08:47] LABS: BUN/Creatinine Ratio 22.8 (8-20); Calcium 8.2 mg/dL (8.6-10.3); EGFR African American 75.7 (>60); EGFR Non-African American 58.9 (>60); Potassium 4.2 mmol/L (3.5-5.0)
--- NOTE | 2016-12-09 11:02 | PN ---
Subjective Date of Service: 12/09/16 Interval History: Patient seen and examined at bedside. Ms. Urena denies any acute complaint, including dizziness, chest pain, SOB, abd pain, n/v. She reports good pain control with her Percocet. No other acute concerns. Family History: Unchanged from Admission Social History: Unchanged from Admission Past Medical History: Unchanged from Admission Objective Active Medications: Acetaminophen (Tylenol Tab*) 650 mg PO Q4H PRN PRN Reason: mild pain or fever Amlodipine Besylate (Norvasc Tab*) 5 mg PO QAM [facility] Last Admin: 12/09/16 08:31 Dose: 5 mg Bisacodyl (Dulcolax Supp*) 10 mg OR DAILY PRN PRN Reason: constipation Cyclobenzaprine HCl (Flexeril Tab*) 10 mg PO BEDTIME [facility] Last Admin: 12/08/16 20:37 Dose: 10 mg Diphenhydramine HCl (Benadryl Iv*) 12.5 mg IV Q6H PRN PRN Reason: PRURITIS Diphenhydramine HCl (Benadryl Po*) 25 mg PO Q6H PRN PRN Reason: INSOMNIA Docusate Sodium (Colace Cap*) 100 mg PO BID [facility] Last Admin: 12/09/16 08:31 Dose: 100 mg Ferrous Sulfate (Ferrous Sulfate Tab*) 325 mg PO DAILY [facility] Last Admin: 12/09/16 08:30 Dose: 325 mg Lactulose (Lactulose*) 30 ml PO Q6H PRN PRN Reason: constipation Magnesium Hydroxide (Milk Of Magnesia Liq*) 30 ml PO BID [facility] Last Admin: 12/09/16 08:32 Dose: Not Given Metoprolol Succinate (Toprol Xl Tab*) 50 mg PO QAM [facility] Last Admin: 12/09/16 08:31 Dose: 50 mg Morphine Sulfate (Morphine Inj (Syringe)*) 5 mg IV Q2H PRN PRN Reason: PAIN Last Admin: 12/08/16 23:28 Dose: 5 mg Multivitamins/Minerals (Theragran/Minerals Tab*) 1 tab PO DAILY [facility] Last Admin: 12/09/16 08:31 Dose: 1 tab Ondansetron HCl (Zofran Inj*) 4 mg IV Q6H PRN PRN Reason: nausea Last Admin: 12/06/16 09:29 Dose: 4 mg Ondansetron HCl (Zofran Tab*) 4 mg PO Q6H PRN PRN Reason: NAUSEA Oxycodone HCl (Roxycodone Tab*) 10 mg PO Q4H PRN PRN Reason: breakthru pain Oxycodone/Acetaminophen (Percocet 5/325 Tab*) 1 tab PO Q3H PRN PRN Reason: PAIN - MODERATE Last Admin: 12/08/16 22:17 Dose: 1 tab Oxycodone/Acetaminophen (Percocet 5/325 Tab*) 2 tab PO Q3H PRN PRN Reason: PAIN - MODERATE Last Admin: 12/09/16 07:11 Dose: 2 tab Pharmacy Profile Note (Coumadin Daily Reminder*) 1 note FOLLOW UP 1700 IMM[facility] Last Admin: 12/08/16 17:58 Dose: Not Given Polyethylene Glycol/Electrolytes (Miralax*) 17 gm PO DAILY PRN PRN Reason: Constipation Scopolamine (Transderm-Scop 1.5 Mg Patch*) 1 patch TRANSDERM Q72H [facility] Last Admin: 12/06/16 12:09 Dose: 1 patch Tramadol HCl (Ultram*) 50 mg PO Q6H PRN PRN Reason: moderate pain Last Admin: 12/09/16 06:07 Dose: 50 mg Warfarin Sodium (Coumadin Tab(*)) 2 mg PO ONCE@1700 ONE PRN Reason: Protocol Stop: 12/09/16 17:01 Vital Signs 12/08/16 12/08/16 12/08/16 11:51 13:04 15:04 Temperature 98.0 F Pulse Rate 70 Respiratory 16 16 16 Rate Blood Pressure 118/45 (mmHg) O2 Sat by Pulse 96 Oximetry 12/08/16 12/08/16 12/08/16 15:32 15:36 17:32 Temperature 98.3 F Pulse Rate 65 Respiratory 16 16 16 Rate Blood Pressure 106/46 (mmHg) O2 Sat by Pulse 96 Oximetry 12/08/16 12/08/16 12/08/16 19:20 19:30 20:00 Temperature 98.5 F Pulse Rate 71 Respiratory 16 16 16 Rate Blood Pressure 121/47 (mmHg) O2 Sat by Pulse 94 Oximetry 12/08/16 12/08/16 12/08/16 20:37 21:29 22:17 Temperature Pulse Rate Respiratory 16 16 16 Rate Blood Pressure (mmHg) O2 Sat by Pulse Oximetry 12/08/16 12/08/16 12/08/16 22:37 23:28 23:29 Temperature Pulse Rate Respiratory 16 16 16 Rate Blood Pressure (mmHg) O2 Sat by Pulse Oximetry 12/08/16 12/09/16 12/09/16 23:32 00:00 00:17 Temperature 99.6 F Pulse Rate 75 Respiratory 18 16 Rate Blood Pressure 128/48 (mmHg) O2 Sat by Pulse 96 97 Oximetry 12/09/16 12/09/16 12/09/16 00:28 03:24 06:07 Temperature 98.6 F Pulse Rate 68 Respiratory 16 14 16 Rate Blood Pressure 121/45 (mmHg) O2 Sat by Pulse 97 Oximetry 12/09/16 12/09/16 12/09/16 07:11 07:24 07:33 Temperature 98.0 F Pulse Rate 71 Respiratory 16 16 24 Rate Blood Pressure 130/41 (mmHg) O2 Sat by Pulse 97 92 Oximetry 12/09/16 12/09/16 08:07 09:11 Temperature Pulse Rate Respiratory 16 16 Rate Blood Pressure (mmHg) O2 Sat by Pulse Oximetry Oxygen Devices in Use Now: None Appearance: Older female, OOB to chair, in NAD Eyes: No Scleral Icterus, PERRLA Ears/Nose/Mouth/Throat: Mucous Membranes Moist Neck: NL Appearance and Movements; NL JVP Respiratory: Symmetrical Chest Expansion and Respiratory Effort, Clear to Auscultation Cardiovascular: NL Sounds; No Murmurs; No JVD, RRR Abdominal: NL Sounds; No Tenderness; No Distention Extremities: - - mild edema to RLE, dressing c/d/i, distally nvi Neurological: Alert and Oriented x 3, NL Muscle Strength and Tone Lines/Tubes/Other Access: Clean, Dry and Intact Peripheral IV Nutrition: Taking PO's Result Diagrams: 12/09/16 08:16 12/09/16 08:16 Microbiology and Other Data: Microbiology 12/08/16 09:40 Stool Occult Blood ([facility]) - Final Stool Assess/Plan/Problems-Billing Assessment: Ms. Urena is a 81 yo female with a PMH of HTN, HLD, PVD, and stage 3 CKD who was admitted 12/04 for elective right total knee replacement. - Patient Problems (1) Hyponatremia Code(s): E87.1 - HYPO-OSMOLALITY AND HYPONATREMIA Comment: Improving Patient asymptomatic Suspect fluid shifts post-operatively and hypervolemia Continue fluid restriction Recommend outpatient BMP in 2 days (2) Acute blood loss anemia Code(s): D62 - ACUTE POSTHEMORRHAGIC ANEMIA Comment: Patient s/p 1 unit PRBC following surgery HH improved yesterday and then was low again today No s/s of bleeding, stool occult negative Recommend repeat CBC in 2 days (3) Status post total right knee replacement Code(s): Z96.651 - PRESENCE OF RIGHT ARTIFICIAL KNEE JOINT Comment: POD #5 Management per ortho PT/OT (4) HTN (hypertension) Code(s): I10 - ESSENTIAL (PRIMARY) HYPERTENSION Comment: Normotensive Continue to hold benazepril, HCTZ Resume when BP allows (5) CKD (chronic kidney disease), stage III Code(s): N18.3 - CHRONIC KIDNEY DISEASE, STAGE 3 (MODERATE) Comment: Preop creatine 1.26 Creatinine better than previous baseline Avoid nephrotoxic medications Continue outpatient nephrology follow-up (6) PVD (peripheral vascular disease) Code(s): I73.9 - PERIPHERAL VASCULAR DISEASE, UNSPECIFIED (7) HLD (hyperlipidemia) Code(s): E78.5 - HYPERLIPIDEMIA, UNSPECIFIED (8) DVT prophylaxis Comment: Per ortho SCDs Status and Disposition: Inpatient admission. Dispo per ortho. Patient okay for discharge with follow-up labs at [facility] in 2 days.
[2016-12-09] MEDS: Scopolamine 1.5 mg* PATCH TRANSDERM SCH (12:34)
[2016-12-09] MEDS ORDERED: Warfarin TAB(*) 2 MG PO ONE (17:00)
[2016-12-09] MEDS: Cyclobenzaprine TAB* 10 MG PO SCH (20:06)
[2016-12-10] MEDS: traMADol TAB* 50 MG PO PRN ×2 (01:32→07:31)
[2016-12-10] MEDS: oxyCODONE/Acetamin 5/325 MG* TAB PO PRN (06:02)
[2016-12-10 07:59] VITALS: BP 149/52
[2016-12-10] MEDS: Multivitamins/Minerals TAB PO SCH (08:59)
[2016-12-10] MEDS: Metoprolol Succinate XL TAB* 50 MG PO SCH (08:59)
[2016-12-10] MEDS: Ferrous Sulfate TAB* 325 MG PO SCH (08:59)
[2016-12-10] MEDS: Docusate CAP* 100 MG PO SCH (08:59)
[2016-12-10] MEDS: Magnesium Hydroxide LIQ* 30 ML UDC PO SCH (08:59)
[2016-12-10] MEDS: amLODIPine TAB* 5 MG PO SCH (08:59)
--- NOTE | 2016-12-10 09:14 | DS ---
DISCHARGE SUMMARY: DATE OF ADMISSION: 12/04/16 DATE OF DISCHARGE: 12/10/16 SURGEON: Ellen Pearl MD * (DICTATED BY ADAMARIS HENRY) PRINCIPAL DIAGNOSIS: Severe end-stage degenerative osteoarthritis of the right knee. DISCHARGE DIAGNOSIS: Severe end-stage degenerative osteoarthritis of the right knee. HISTORY OF PRESENT ILLNESS: Ms. Urena is a 81-year-old female with years of increasing severe right knee pain secondary to end-stage osteoarthritis of the right knee joint. She has failed conservative management and elected to proceed with a right total knee arthroplasty. HOSPITAL COURSE: Ms. Urena is a 81-year-old female. She was admitted electively to the hospital on 12/04/16 and underwent a right total knee arthroplasty. She tolerated the procedure well with no complications. Postoperatively, she was placed on Lovenox and Coumadin for DVT prophylaxis. On postoperative day #1, her H and H was 7.9 and 23; postoperative day #2, 7.9 and 23. She was given 1 unit of packed red blood cells. On postoperative day # 2, her H and H improved to 9.9 and 28; postop day #3, 9.6 and 27; postop day #4 , 8.2 and 23; postoperative day #5, 8.4 and 24. Her INR went from 1.05 on postoperative day #1 to 1.8 on postoperative day #2 to 2.98 on postoperative day #3. Her Coumadin was held. On postoperative day #4, her INR was still elevated at 3.04. Her Coumadin was held again. On postoperative day #5, her INR was 1.78. At the time of discharge on 12/10/16, she was afebrile. Her vital signs were stable and she was transferred to [facility] for continued inpatient rehabilitation. MEDICATIONS UPON DISCHARGE: 1. Norvasc 5 mg daily. 2. Flexeril 10 mg 2 to 3 times a day as needed. 3. Colace 100 mg 2 to 3 times a day as needed. 4. Ferrous sulfate 325 daily. 5. Metoprolol 50 mg once a day. 6. Multivitamin. 7. Percocet 5/325, 1 to 2 tabs every 4 to 6 hours. 8. Coumadin 2 mg. PHYSICAL EXAM UPON DISCHARGE: She was afebrile. Her vital signs were stable. She was overall neurovascularly intact. The incision was clean and dry with no signs of infection. She was ambulating well with the aid of a walker. DISCHARGE INSTRUCTIONS: She was transferred to [facility] for continued inpatient rehabilitation. She is instructed to stay on Coumadin postoperatively for DVT prophylaxis. Her last INR was 1.78 and she was given 2 mg of Coumadin Saturday night. She will have her INR rechecked today for continued dosing. She will take Percocet as needed for pain, weightbearing as tolerated and Dr. Pearl would like to see her back in her clinic in 2 weeks. We have asked her to call us sooner if she has any questions or concerns. ADAMARIS HENRY [id number]/[facility] #: [id number]
== END 2016-12-10 10:25 | DRG 470 ==
LOC: AA 08:03 → SSU 13:14
PROVIDERS: ADMIT Orthopaedic Surgery Adult Reconstructive Orthopaedic Surgery; ATTEND Orthopaedic Surgery Adult Reconstructive Orthopaedic Surgery
PROC: 0SRC0J9 Replacement of Right Knee Joint with Synthetic Substitute, Cemented, Open Approach (ICD-10-PCS; 2016-12-05)
PROC: 30233N1 Transfusion of Nonautologous Red Blood Cells into Peripheral Vein, Percutaneous Approach (ICD-10-PCS; principal; 2016-12-06)
DX: M17.11 Unilateral primary osteoarthritis, right knee (principal); E11.22 Type 2 diabetes mellitus with diabetic chronic kidney disease; E11.51 Type 2 diabetes mellitus with diabetic peripheral angiopathy without gangrene; D62 Acute posthemorrhagic anemia; E87.1 Hypo-osmolality and hyponatremia; Z79.01 Long term (current) use of anticoagulants; E78.5 Hyperlipidemia, unspecified; I12.9 Hypertensive chronic kidney disease with stage 1 through stage 4 chronic kidney disease, or unspecified chronic kidney disease; Z90.710 Acquired absence of both cervix and uterus; Z88.0 Allergy status to penicillin; Z88.5 Allergy status to narcotic agent; Z88.1 Allergy status to other antibiotic agents; Z82.49 Family history of ischemic heart disease and other diseases of the circulatory system; Z83.3 Family history of diabetes mellitus; Z82.3 Family history of stroke; M25.761 Osteophyte, right knee; N18.3 Chronic kidney disease, stage 3 (moderate); R42 Dizziness and giddiness
CPT/HCPCS: 36415; 80048; 80053; 80061; 82272; 82570; 83930; 83935; 84300; 84439; 84443; 85014; 85018; 85025; 85610; 86850; 86900; 86901; 86922; 94760; A9270-GY; C1776; J0330; J1100; J1170; J1240; J1650; J1885; J1940; J2250; J2270; J2405; J2704; J2795; J3010; P9040